=== PATIENT | female | born 1955 | race African-American/Black ===

== ENCOUNTER 2018-05-12 00:15 | Emergency (ER) | payer OTHER, MEDICAID ==
[~2018-05-12] VITALS: Ht 167.6 cm; Wt 103.0 kg
[~2018-05-12 00:15] MED LIST: NEURONTIN; NOR10T OR; RIZA10TA12 OR; ROBAXIN; TRAM-297 OR; VENL75CA3 OR
[2018-05-12 00:39] VITALS: BP 99/65
[2018-05-12 01:17] LABS: Anion Gap 7 (5-15); Blood Urea Nitrogen 16 mg/dL (7-18); Carbon Dioxide 22 mmol/L (21-32); Chloride 113 mmol/L (98-107); Glucose 82 mg/dL (74-106); Magnesium 2.4 mg/dL (1.6-2.6); Potassium 3.9 mmol/L (3.5-5.1); Sodium 142 mmol/L (136-145)
[2018-05-12 01:19] LABS: Alanine Aminotransferase 18 U/L (13-56); Aspartate Aminotransferase 12 U/L (15-37); BUN/Creatinine Ratio 18.6; GFR African American > 60 mL/min; GFR Non-African American > 60 mL/min
[2018-05-12 01:25] LABS: Alkaline Phosphatase 97 U/L (45-117); Bilirubin, Total 0.2 mg/dL (0.2-1.0); Total Protein 6.8 g/dL (6.4-8.2)
[2018-05-12 01:53] LABS: Basophils # (auto) 0.1 uL; Basophils % (auto) 2.8 % (0.0-2.0); Eosinophils # (auto) 0.5 uL; Eosinophils % (auto) 9.7 % (0.0-7.0); Hematocrit 30.1 % (36.0-46.0); Hemoglobin 9.7 g/dL (12.2-16.2); Lymphocytes # (auto) 0.8 uL; Mean Corpuscular Hemoglobin 25.6 pg (28.0-32.0); Mean Corpuscular Hgb Conc. 32.4 g/dL (32.0-36.0); Mean Corpuscular Volume 78.9 fL (80.0-100.0); Monocytes # (auto) 0.4 uL; Monocytes % (auto) 7.6 % (0.0-12.0); Neutrophils # (auto) 3.2 uL; Neutrophils % (auto) 63.9 % (37.0-80.0); Nucleated Red Blood Cells % 0.1 %; Platelet Count (auto) 324 10^3/uL (140-450); Red Blood Cells 3.81 10^6/uL (4.0-5.20); Red Cell Distribution Width 18.6 % (11.8-14.3)
[2018-05-12 01:56] LABS: INR 0.93 (0.9-1.15); Partial Thromboplastin Time 25.2 sec (23.78-33.04)
== END 2018-05-12 03:30 | disposition left against medical advice (07) ==
LOC: ER 00:19
DX: R50.9 Fever, unspecified (principal); R11.10 Vomiting, unspecified; Z53.21 Procedure and treatment not carried out due to patient leaving prior to being seen by health care provider
CPT/HCPCS: 36415; 71045; 74176; 80053; 83735; 83880; 84484; 85025; 85610; 85730; 93005

== ENCOUNTER 2025-03-01 17:42 | Inpatient (IN) | payer MEDICARE, MEDICAID ==
[~2025-03-01] VITALS: Ht 167.6 cm; Wt 105.9 kg
[2025-03-01 19:48] VITALS: PULSE 89; RESP 18; O2SAT 98
--- NOTE | 2025-03-01 20:02 | ED.PDOC ---
History of Present Illness HPI Comments 69-year-old female BIBA with the chief complaint of lower extremity swelling. Patient reports on having had lower extremity swelling associated with back pain for months. Patient saw her PCP last week and was prescribed Lasix for one week for which the patient finished her medications. Patient is currently living with her daughter and states that she was able to ambulate but currently he is unable to. Patient does have bilateral pitting edema to the lower extremities. Denies any other symptoms at this time. Denies chills, fever, N/V/D, SOB, CP. No other associated symptoms, modifiers, recent injuries or sick contacts present at this time. Chief Complaint: Lower Extremity Time Seen by MD: 19:30 Primary Care Provider: UNK Reviewed Notes: Nurses Notes, Medications, Allergies Allergies: Coded Allergies: NO KNOWN ALLERGIES (Unverified , 02/24/10) Home Meds Reported Medications Venlafaxine Hydrochloride (Effexor Xr) 75 Mg Cap, 75 MG OR TID 03/02/11 Rizatriptan Benzoate (Maxalt) 10 Mg Tab, 10 MG OR PRN 03/02/11 Tramadol Hcl (Ultram) 50 Mg Tab, 100 MG OR TID 03/02/11 Hydrocodone-Acetaminophen ([place] 10/325MG) 1 Tab Tb, 1 TAB OR TID 03/02/11 [Robaxin] No Conflict Check 02/24/10 [Neurontin] No Conflict Check 02/24/10 Information Source: Patient Mode of Arrival: EMS Severity: Moderate Timing: Came on: Gradually Duration: Since onset Prehospital treatment: None Past Medical History PAST MEDICAL HISTORY: Arthritis Surgical History: Denies all surgeries BUTT WELDER History: No Pertinent BUTT WELDER History Family History Family History: Reviewed,noncontributory to illness, Unknown Social History Smoker: Non-Smoker Alcohol: Denies ETOH Use Drugs: Denies Drug Use Lives In: Home Constitutional: denies: chills, diaphoresis, fatigue, fever, malaise, sweats, weakness, others EENTM: denies: blurred vision, double vision, ear bleeding, ear discharge, ear drainage, ear pain, ear ringing, eye pain, eye redness, hearing loss, mouth pain, mouth swelling, nasal discharge, nose bleeding, nose congestion, nose pain, photophobia, tearing, throat pain, throat swelling, voice changes, others Respiratory: denies: cough, hemoptysis, orthopnea, SOB at rest, shortness of breath, SOB with excertion, stridor, wheezing, others Cardiovascular: reports: edema (Bilateral pitting edema to the lower ext remities); denies: chest pain, dizzy spells, diaphoresis, Dyspnea on exertion, irregular heart beat, left arm pain, lightheadedness, palpitations, PND, syncope, others Gastrointestinal: denies: abdomen distended, abdominal pain, blood streaked bowels, constipated, diarrhea, dysphagia, difficulty swallowing, hematemesis, melena, nausea, poor appetite, poor fluid intake, rectal bleeding, rectal pain, vomiting, others Genitourinary: denies: abnormal vagina bleeding, burning, dyspareunia, dysuria, flank pain, frequency, hematuria, incontinence, pain, , vagina discharge, urgency, others Neurological: denies: dizziness, fainting, headache, left sided numbness, left sided weakness, numbness, paresthesia, pre-existing deficit, right sided numbness, right sided weakness, seizure, speech problems, tingling, tremors, weakness, others Musculoskeletal: denies: back pain, gout, joint pain, joint swelling, muscle pain, muscle stiffness, neck pain, others Integumetry: denies: bruises, change in color, change in hair/nails, dryness, laceration, lesions, lumps, rash, wounds, others Allergic/Immunocompromised: denies: Difficulty Healing, Frequent Infections, Hives, Itching, others Hematologic/Lymphatic: denies: anemia, blood clots, easy bleeding, easy bruising, swollen glands, others Endocrine: denies: excessive hunger, excessive sweating, excessive thirst, excessive urination, flushing, intolerance to cold, intolerance to heat, unexplained weight gain, unexplained weight loss, others Psychiatric: denies: anxiety, bipolar disorder, depression, hopeless, panic disorder, schizophrenia, sleepless, suicidal, others All Other Systems: Reviewed and Negative Physical Exam Exam Comments Bilateral pitting edema to the lower extremities General Appearance: No Apparent Distress, Normal HEENT: Normal ENT Inspection, Pharynx Normal, TMs Normal Neck: Full Range of Motion, Non-Tender, Normal, Normal Inspection Respiratory: Chest Non-Tender, Lungs Clear, No Accessory Muscle Use, No Respiratory Distress, Normal Breath Sounds Cardiovascular: No Edema, No JVD, No Murmur, No Gallop, Normal Peripheral Pulses, Regular Rate/Rhythm Breast Exam: Deferred Gastrointestinal: No Organomegaly, Non Tender, No Pulsatile Mass, Normal Bowel Sounds, Soft Genitalia: Deferred Pelvic: Deferred Rectal: Deferred Extremities: No calf tenderness, Normal capillary refill, Normal inspection, Normal range of motion, Non-tender, No pedal edema Musculoskeletal : Apperance: Normal Neurologic: Alert, engineering administrator II-XII nml as Tested, No Motor Deficits, Normal Affect, Normal Mood, No Sensory Deficits Cerebellar Function: Normal Reflexes: Normal Skin: Dry, Normal Color, Warm Lymphatic: No Adenopathy Was a procedure done? Was a procedure done?: No Differential Dx Considerations may include: CHF exacerbation, COPD, pneumonia, DVT, peripheral edema, cellulitis X-Ray, Labs, Meds, VS Vital Signs Date Time Temp Pulse Resp B/P (MAP) Pulse Ox O2 Delivery O2 Flow Rate FiO2 03/01/25 19:48 89 18 98 Room Air* 0 21 03/01/25 19:30 97.7 89 18 151/ 98 97.7 03/01/25 18:14 98.3 90 18 133/69 98 98.3 Lab Test 03/01/25 19:41 Range/Units White Blood Count 3.8 L 4.4-10.8 10^3/uL Red Blood Count 3.17 L 4.0-5.20 10^6/uL Hemoglobin 8.9 L 12.2-16.2 g/dL Hematocrit 26.7 L 36.0-46.0 % Mean Corpuscular Volume 84.2 80.0-100.0 fL Mean Corpuscular Hemoglobin 28.0 28.0-32.0 pg Mean Corpuscular Hemoglobin Concent 33.2 32.0-36.0 g/dL Red Cell Distribution Width 15.5 H 11.8-14.3 % Platelet Count 279 140-450 10^3/uL Mean Platelet Volume 7.6 6.9-10.8 fL Neutrophils (%) (Auto) 69.3 37.0-80.0 % Lymphocytes (%) (Auto) 20.3 10.0-50.0 % Monocytes (%) (Auto) 9.9 0.0-12.0 % Eosinophils (%) (Auto) 0.4 0.0-7.0 % Basophils (%) (Auto) 0.1 0.0-2.0 % Neutrophils # (Auto) 2.6 1.6-8.6 10 ^3/uL Lymphocytes # (Auto) 0.8 0.4-5.4 10 ^3/uL Monocytes # (Auto) 0.4 0-1.3 10 ^3/uL Eosinophils # (Auto) 0 0-0.8 10 ^3/uL Basophils # (Auto) 0 0-0.2 10 ^3/uL Nucleated Red Blood Cells 0.0 % Sodium Level 142 136-145 mmol/L Potassium Level 3.2 L 3.5-5.1 mmol/L Chloride Level 106 98-107 mmol/L Carbon Dioxide Level 28 20-31 mmol/L Anion Gap 8 5-15 Blood Urea Nitrogen 15 9-23 mg/dL Creatinine 1.06 H 0.550-1.02 mg/dL Glomerular Filtration Rate Calc 57 >90 mL/min BUN/Creatinine Ratio 14.2 10.0-20.0 Serum Glucose 100 74-106 mg/dL Calcium Level 8.3 L 8.7-10.4 mg/dL Total Bilirubin 0.7 0.2-1.0 mg/dL Aspartate Amino Transferase (AST) 82 H 13-40 U/L Alanine Aminotransferase (ALT) 104 H 7-40 U/L Alkaline Phosphatase 144 H 46-116 U/L B-Type Natriuretic Peptide 305.69 0-100 pg/mL Total Protein 5.7 5.7-8.2 g/dL Albumin 2.8 L 3.2-4.8 g/dL X-Ray, Labs, Meds, VS Comment Patient will be admitted for peripheral edema leading to her being gravely disabled. Unable to care for herself. Patient unwilling to help herself to use the commode or bathroom in the emergency department, Shah catheter has been placed Recommend Cardiology consult in morning Patient hemodynamically stable Time of 1ST Reevaluation: 20:00 Reevaluation 1ST: Unchanged Patient Education/Counseling: Diagnosis, Treatment, Prognosis Family Education/Counseling: No Family Present SEPSIS Sepsis Screen Date sepsis recognized/suspect: Mar 01, 2025 Time Sepsis recognized/suspect: 1944 Recent Procedure: No On Antibiotic Therapy: No Respiratory Rate >20: No Heart Rate >90: No Temp<36 C (96.8 F) or >38.3 C: No SBP <90 or MAP <65 mmHG: No New Acute Mental Status Change: No Is the patient on CPAP, BIPAP,: No Physician Orders Urinalysis (03/01/25 19:21) Chest Xray 1 View (03/01/25 19:21) Vital Signs Date Time Temp Pulse Resp B/P (MAP) Pulse Ox O2 Delivery O2 Flow Rate FiO2 03/01/25 19:48 89 18 98 Room Air* 0 21 03/01/25 19:30 97.7 89 18 151/ 98 97.7 03/01/25 18:14 98.3 90 18 133/69 98 98.3 Laboratory Tests Test 03/01/25 19:41 White Blood Count 3.8 10^3/uL (4.4-10.8) L Departure 1 Departure Time of Disposition: 21:05 Impression: Primary Impression: CHF (congestive heart failure) Qualified Codes: I50.22 - Chronic systolic (congestive) heart failure Additional Impressions: Gravely disabled Peripheral edema Disposition: ADMITTED INPATIENT Condition: Stable Critical Care Note Critical Care Time?: No Stability Stability form required: No I personally scribed for TEO SALTER ([email or web address]) on 03/01/25 at 20:02. Electronically submitted by Mil Mckoy ([email or web address]). TEO SALTER Mar 01, 2025 20:02
[2025-03-01 20:25] LABS: Hematocrit 26.7 % (36.0-46.0); Hemoglobin 8.9 g/dL (12.2-16.2); Mean Corpuscular Hemoglobin 28.0 pg (28.0-32.0); Mean Corpuscular Volume 84.2 fL (80.0-100.0); Nucleated Red Blood Cells % 0.0 %
[2025-03-01 20:28] LABS: Anion Gap 8 (5-15); BUN/Creatinine Ratio 14.2 (10.0-20.0); Blood Urea Nitrogen 15 mg/dL (9-23); Carbon Dioxide 28 mmol/L (20-31); Chloride 106 mmol/L (98-107); Glucose 100 mg/dL (74-106); Sodium 142 mmol/L (136-145); Total Protein 5.7 g/dL (5.7-8.2)
[2025-03-01 20:29] LABS: Bilirubin, Total 0.7 mg/dL (0.2-1.0)
[2025-03-01 20:50] LABS: Alanine Aminotransferase 104 U/L (7-40); Albumin 2.8 g/dL (3.2-4.8); Alkaline Phosphatase 144 U/L (46-116); Calcium 8.3 mg/dL (8.7-10.4); Potassium 3.2 mmol/L (3.5-5.1)
--- NOTE | 2025-03-01 21:07 | DVH ---
CHEST RADIOGRAPH Indication: sob Technique: Single frontal view of the chest was obtained Comparison: None FINDINGS: Lines and Tubes: None Lungs: No focal consolidation. Pleura: No effusion. No pneumothorax. Cardiomediastinal contours: Unremarkable Bones: No acute osseous abnormality. IMPRESSION: 1. No acute cardiopulmonary disease.
[2025-03-01] MEDS: FUROSEMIDE 40 MG/4 ML VIAL IV ONE (21:09)
[2025-03-01 21:41] LABS: Urine Protein, UAD Negative (Negative)
[2025-03-01] MEDS: POTASSIUM EFFERVESENT TAB 25 MEQ PO ONE (22:01)
[2025-03-01] MEDS ORDERED: ACETAMINOPHEN 325 MG TAB PO PRN (22:30)
[2025-03-01] MEDS ORDERED: ONDANSETRON HCL 4 MG/2 ML VIAL IV PRN (22:30)
[2025-03-01 23:12] LABS: Amphetamine Screen, Urine Neg (NEGATIVE); Barbiturate Scree,Urine Neg (NEGATIVE); Benzodiazephine Screen, Urine Neg (NEGATIVE); Cannabinoid Screen, Urine Neg (NEGATIVE); Cocaine Screen, Urine Neg (NEGATIVE); Opiate Scree,Urine Pos (NEGATIVE); Phencyclidine Screen, Urine Neg (NEGATIVE)
[2025-03-01] MEDS: ENOXAPARIN SOD 40 MG/0.4 ML SYRINGE SC SCH (23:30)
[2025-03-01] MEDS: HYDROmorphone HCL 2 MG/ML VL/or syr IV ONE (23:31)
--- NOTE | 2025-03-01 23:47 | DVH ---
ULTRASOUND DOPPLER CLINICAL HISTORY: transaminitis TECHNIQUE: Doppler examination of the abdomen was performed. COMPARISON: None FINDINGS: The liver measures 19.0 cm. There is increased hepatic echogenicity. There is hepatopetal flow. There is no biliary ductal dilatation. Prior cholecystectomy. The common bile duct measures 7 mm. The pancreas is obscured due to overlying bowel gas. The right kidney measures 11.7 cm. There is no evidence of renal calculus, mass, or hydronephrosis. IMPRESSION: 1. Hepatomegaly with increased hepatic echogenicity which may reflect hepatic steatosis or intrinsic hepatocellular disease.
--- NOTE | 2025-03-01 23:54 | DVHHPRES ---
History of Present Illness Resident Creating Document: DENIS ZAMORA RESIDENT History of Present Illness 69-year-old female with a past medical history of arthritis, anemia, chronic back pain, morbid obesity and surgical history of bilateral knee replacement has come to the ER with chief complaints of bilateral lower limb edema for the past 8 days, rendering her unable to get out of bed and ambulate. Patient reports that she has been mostly bedridden for over 9 months due to chronic back pain, but uses a walker to ambulate, however, in the past 8 days has not been able to do so prompting her to visit the ER. She states that her neurologist has given her a stimulator device ( which is attached to her back and abdomen) for her back pain 9 days ago, which has helped with the pain and her PCP also prescribed her Lasix for 1 week which has run out. she denies any chills, fever, nausea, vomiting, diarrhea, shortness of breath, palpitations, sick contacts, cough, b sienna pain. On admission her vitals are stable, potassium is low at 3.2, hemoglobin at 8.9, ALT 104, AST 82, ALT 144, BNP 305.69. Chest x-ray is normal. We are admitting the patient for further workup and management PMH: As stated above PSH: As stated above Family history: Reviewed, noncontributory to the management of this case Social history: Patient denies ever smoking, drinking alcohol or abusing illicit drugs Allergies: None Code status: Full code Review of Systems Constitutional: No: Fever, Chills, Sweats, Weakness, Malaise, Other Eyes: No: Pain, Vision change, Conjunctivae inflammation, Eyelid inflammation, Other, Redness ENT: No: Ear pain, Ear discharge, Nose pain, Nose discharge, Nose congestion, Mouth pain, Mouth swelling, Throat pain, Throat swelling, Other Respiratory: No: Cough, Dry, Shortness of breath, SOB with excertion, Wheezing, Hemoptysis, Pleuritic Pain, Sputum, Wheezing, Other Cardiovascular: Other (Bilateral leg edema); No: Chest Pain, Palpitations, Orthopnea, Paroxysmal Noc. Dyspnea, Edema, Lt Headedness Gastrointestinal: No: Nausea, Vomiting, Abdominal Pain, Diarrhea, Constipation, Melena, Hematochezia, Other Genitourinary: No Dysuria, No Frequency, No Incontinence, No Hematuria, No Retention, No Other Musculoskeletal: back pain; No: other, neck pain, shoulder pain, arm pain, hand pain, leg pain, foot pain Skin: No: Rash, Lesions, Jaundice, Bruising, Other Neurological: No: Weakness, Numbness, Incoordination, Change in speech, Confusion, Seizures, Other Allergies: Coded Allergies: NO KNOWN ALLERGIES (Unverified , 02/24/10) Medications Current Medications Medications Dose Ordered Sig/Jason Route Start Time Stop Time Status Last Admin Dose Admin Acetaminophen/ Hydrocodone Bitart 1 tab Q4HP PRN PO 03/01/25 22:30 Ondansetron HCl 4 mg Q4HP PRN IV 03/01/25 22:30 Acetaminophen 650 mg Q6HP PRN PO 03/01/25 22:30 Enoxaparin Sodium 40 mg DAILY SC 03/01/25 22:30 03/01/25 23:30 40 MG Furosemide 40 mg DAILY IV 03/02/25 10:00 Hydromorphone HCl 0.25 mg Q4HPRN PRN IV 03/01/25 22:30 Exam Vital Signs Vital Signs Date Time Temp Pulse Resp B/P (MAP) Pulse Ox O2 Delivery O2 Flow Rate FiO2 03/01/25 23:31 91 18 126/67 03/01/25 21:30 98 03/01/25 19:48 Room Air* 0 21 03/01/25 19:30 97.7 97.7 Exam Pt is lying on bed General Appearance: Alert, Oriented X3, Cooperative, Not in acute distress, obese HEENT: Atraumatic, Mucous membranes moist/pink Respiratory: Clear to auscultation, Normal air movement, No added sounds Cardiovascular: Regular rate, Normal S1, Normal S2, No murmurs Abdominal: Active bowel sounds, Soft, no distention, no tenderness Extremities: No edema, Normal pulses, +2 pitting edema up to the knee, tender on palpation of bilateral legs Skin: No Significant rash, except past surgical scars, presence of neurostimulator device in the abdomen and mid back Neuro: Normal speech, sensorimotor deficits none Psych/Mental Status: Mental status NL, Mood NL Rectal examination: Done in the presence of a ophthalmology surgical technician (Nurse). Anal sphincter tone was normal, rectal vault was empty, no external hemorrhoids or masses felt, no bleeding present Labs/Xrays Labs Test 03/01/25 21:25 03/01/25 19:41 Range/Units Urine Color Light-yellow Yellow Urine Clarity Clear Clear Urine pH 6.0 5.0-9.0 Urine Specific [place] 1.011 1.001-1.035 Urine Protein Negative Negative Urine Ketones Negative Negative Urine Blood Negative Negative /uL Urine Nitrite Negative Negative Urine Bilirubin Negative Negative Urine Urobilinogen Normal Negative mg/dL Urine Leukocyte Esterase Negative Negative /uL Urine RBC 1 0 - 4 /hpf Urine Microscopic WBC 1 0-5 /HPF Urine Squamous Epithelial Cells Few <5 /hpf Urine Bacteria None seen None Seen /hpf Urine Mucus Few None Seen Urine Glucose Normal Normal mg/dL Urine Opiates Screen Pos NEGATIVE Urine Fentanyl Screen Neg NEGATIVE Urine Barbiturates Screen Neg NEGATIVE Urine Phencyclidine Screen Neg NEGATIVE Urine Amphetamines Screen Neg NEGATIVE Urine Benzodiazepines Screen Neg NEGATIVE Urine Cocaine Screen Neg NEGATIVE Urine Cannabinoids Screen Neg NEGATIVE White Blood Count 3.8 L 4.4-10.8 10^3/uL Red Blood Count 3.17 L 4.0-5.20 10^6/uL Hemoglobin 8.9 L 12.2-16.2 g/dL Hematocrit 26.7 L 36.0-46.0 % Mean Corpuscular Volume 84.2 80.0-100.0 fL Mean Corpuscular Hemoglobin 28.0 28.0-32.0 pg Mean Corpuscular Hemoglobin Concent 33.2 32.0-36.0 g/dL Red Cell Distribution Width 15.5 H 11.8-14.3 % Platelet Count 279 140-450 10^3/uL Mean Platelet Volume 7.6 6.9-10.8 fL Neutrophils (%) (Auto) 69.3 37.0-80.0 % Lymphocytes (%) (Auto) 20.3 10.0-50.0 % Monocytes (%) (Auto) 9.9 0.0-12.0 % Eosinophils (%) (Auto) 0.4 0.0-7.0 % Basophils (%) (Auto) 0.1 0.0-2.0 % Neutrophils # (Auto) 2.6 1.6-8.6 10 ^3/uL Lymphocytes # (Auto) 0.8 0.4-5.4 10 ^3/uL Monocytes # (Auto) 0.4 0-1.3 10 ^3/uL Eosinophils # (Auto) 0 0-0.8 10 ^3/uL Basophils # (Auto) 0 0-0.2 10 ^3/uL Nucleated Red Blood Cells 0.0 % Sodium Level 142 136-145 mmol/L Potassium Level 3.2 L 3.5-5.1 mmol/L Chloride Level 106 98-107 mmol/L Carbon Dioxide Level 28 20-31 mmol/L Anion Gap 8 5-15 Blood Urea Nitrogen 15 9-23 mg/dL Creatinine 1.06 H 0.550-1.02 mg/dL Glomerular Filtration Rate Calc 57 >90 mL/min BUN/Creatinine Ratio 14.2 10.0-20.0 Serum Glucose 100 74-106 mg/dL Calcium Level 8.3 L 8.7-10.4 mg/dL Magnesium Level 1.9 1.6-2.6 mg/dL Total Bilirubin 0.7 0.2-1.0 mg/dL Aspartate Amino Transferase (AST) 82 H 13-40 U/L Alanine Aminotransferase (ALT) 104 H 7-40 U/L Alkaline Phosphatase 144 H 46-116 U/L B-Type Natriuretic Peptide 305.69 0-100 pg/mL Total Protein 5.7 5.7-8.2 g/dL Albumin 2.8 L 3.2-4.8 g/dL SEPSIS Sepsis Screen Date sepsis recognized/suspect: Mar 01, 2025 Time Sepsis recognized/suspect: 1944 Recent Procedure: No On Antibiotic Therapy: No Respiratory Rate >20: No Heart Rate >90: No Temp<36 C (96.8 F) or >38.3 C: No SBP <90 or MAP <65 mmHG: No New Acute Mental Status Change: No Is the patient on CPAP, BIPAP,: No Physician Orders Chest Xray 1 View (03/01/25 19:21) Admit (03/01/25 22:16) Code Status (03/01/25 22:16) Hydrocodone-Acet 5/325mg Tab ([place] 5/32 (03/01/25 22:30) Ondansetron Hcl (Zofran) (03/01/25 22:30) Complete Blood Count (03/02/25 04:00) Comprehensive Metabolic Panel (03/02/25 04:00) Cardiac Diet-2gna,Lofat,Lochol (03/02/25 Breakfast) Condition: Unstable (03/01/25 22:16) Acetaminophen Tablet (Tylenol Tablet) (03/01/25 22:30) Enoxaparin Sodium (Lovenox) (03/01/25 22:30) Electrocardigram (03/01/25 22:16) LIVER (03/01/25 22:16) Furosemide Injection (Lasix Injection) (03/02/25 10:00) Echo 2d Mode Cardiac Dop (03/01/25 22:16) Maintain Fluid Restrictions QSHIFT (03/01/25 22:16) Strict I & O QSHIFT (03/01/25 22:16) Hydromorphone Injection (Dilaudid Inject (03/01/25 22:30) Iron Panel (03/01/25 23:45) Ferritin (03/01/25 23:45) Vitamin B12 (03/01/25 23:45) Folate (Folic Acid) (03/01/25 23:45) Stool Occult Blood (03/01/25 23:45) Vital Signs Date Time Temp Pulse Resp B/P (MAP) Pulse Ox O2 Delivery O2 Flow Rate FiO2 03/01/25 23:31 91 18 126/67 03/01/25 21:30 89 18 134/71 (92) 98 03/01/25 21:09 134/71 03/01/25 19:48 89 18 98 Room Air* 0 21 03/01/25 19:30 97.7 89 18 151/70 (97) 98 97.7 03/01/25 18:14 98.3 90 18 133/69 98 98.3 Laboratory Tests Test 03/01/25 19:41 White Blood Count 3.8 10^3/uL (4.4-10.8) L Medications Medications Dose Ordered Sig/Jason Route Start Time Stop Time Status Last Admin Dose Admin Enoxaparin Sodium 40 mg DAILY SC 03/01/25 22:30 03/01/25 23:30 40 MG Furosemide 40 mg ONCE ONCE IV 03/01/25 19:30 03/01/25 19:31 DC 03/01/25 21:09 40 MG Hydromorphone HCl 0.25 mg ONCE ONCE IV 03/01/25 22:30 03/01/25 22:48 DC 03/01/25 23:31 0.25 MG Potassium Bicarbonate 50 meq ONCE ONCE PO 03/01/25 21:30 03/01/25 21:31 DC 03/01/25 22:01 50 MEQ Assessment/Plan Assessment/Plan #Possible acute exacerbation of CHF -BNP 305.69 -EKG -Echo -Tele monitor -Strict input and output monitoring -Maintain fluid restriction -UDS negative -furosemide 40 mg IV once and daily OD #Hypokalemia -Repleted -Magnesium 1.9 #Hypochromic, normocytic anemia #Iron deficiency -Iron panel: iron 35, tibc 142, ferritin 124.5 -Stool occult blood -ferrous sulphate 325mg po daily #Transaminitis #Hepatic steatosis and intrinsic hepatocellular disease -ALT 104, AST 82, ALP 144 -Ultrasound of the liver: Hepatomegaly with increased hepatic echogenicity which may reflect hepatic steatosis or intrinsic hepatocellular disease -outpt followup #Chronic back pain -Pain management with: -acetaminophen 650 mg p.o. q.6 PRN for mild pain -[place] 5/325 mg q.4 PRN for moderate pain and -Dilaudid 0.25 mg IV once and 0.25 mg q.4 PRN for severe pain #Morbid obesity, BMI 37.2 kg/m2 - patient was counseled regarding need of exercise, weight loss, dietary modification and healthy lifestyle for the 8 minutes DVT prophylaxis: Lovenox 40 mg SC daily Diet: cardiac Goals of care discussed with the patient for more than 27 minutes: Full code status Case discussed with , patient Plan discussed with: Patient My Orders Orders - DENIS ZAMORA RESIDENT Procedure Category Date Status Time Admit ADMIT 03/01/25 Transmitted 22:16 Code Status CODE 03/01/25 Transmitted 22:16 Hydrocodone-Acet PHA 03/01/25 In Process 5/325mg Tab ([place] 22:30 Ondansetron Hcl PHA 03/01/25 In Process (Zofran) 22:30 Complete Blood Count LAB 03/02/25 Verified 04:00 Comprehensive LAB 03/02/25 Verified Metabolic Panel 04:00 Cardiac DIET 03/02/25 Transmitted Diet-2gna,Lofat,Lochol Breakfast Condition: Unstable MARYLOU 03/01/25 In Process 22:16 Acetaminophen Tablet PHA 03/01/25 In Process (Tylenol Tablet) 22:30 Enoxaparin Sodium PHA 03/01/25 In Process (Lovenox) 22:30 Electrocardigram EKG 03/01/25 Logged 22:16 LIVER US 03/01/25 Resulted 22:16 Furosemide Injection PHA 03/02/25 In Process (Lasix Injection) 10:00 Echo 2d Mode Cardiac US 03/01/25 Logged DOP 22:16 Maintain Fluid MARYLOU 03/01/25 In Process Restrictions 22:16 Strict I & O MARYLOU 03/01/25 In Process 22:16 Hydromorphone PHA 03/01/25 In Process Injection (Dilaudid 22:30 Iron Panel LAB 03/01/25 Verified 23:45 Ferritin LAB 03/01/25 Verified 23:45 Vitamin B12 LAB 03/01/25 Verified 23:45 Folate (Folic Acid) LAB 03/01/25 Verified 23:45 Stool Occult Blood LAB 03/01/25 Verified 23:45 Date of Service: Mar 01, 2025 Billing Provider: JONATAN MAHARAJ MD Common Visit Codes: 93593-[id number] INP/OBS CARE (HIGH) Secondary Visit Codes: [id number] CARE PLAN 30 MINUTES DENIS ZAMORA RESIDENT Mar 01, 2025 23:53
[2025-03-02] VITALS (7 sets, daily range): BP systolic 104–137; BP diastolic 57–71; PULSE 78–111; RESP 16–18; TEMP 97.8–98.4; O2SAT 97–99
[2025-03-02 00:52] LABS: Iron 35.0 ug/dL (50-170); Total Iron Binding Capacity 152.0 ug/dL (250-425)
[2025-03-02 00:54] LABS: Ferritin 124.5 ng/mL (10-291)
[2025-03-02 05:48] LABS: Hematocrit 25.4 % (36.0-46.0); Hemoglobin 8.5 g/dL (12.2-16.2); Mean Corpuscular Hemoglobin 28.4 pg (28.0-32.0); Mean Corpuscular Volume 84.9 fL (80.0-100.0); Nucleated Red Blood Cells % 0.2 %
[2025-03-02 06:09] LABS: Anion Gap 12 (5-15); BUN/Creatinine Ratio 11.4 (10.0-20.0); Bilirubin, Total 0.8 mg/dL (0.2-1.0); Blood Urea Nitrogen 10 mg/dL (9-23); Carbon Dioxide 27 mmol/L (20-31); Chloride 104 mmol/L (98-107); Glucose 91 mg/dL (74-106); Potassium 3.7 mmol/L (3.5-5.1); Sodium 143 mmol/L (136-145)
[2025-03-02 06:13] LABS: Alanine Aminotransferase 87 U/L (7-40); Albumin 2.6 g/dL (3.2-4.8); Alkaline Phosphatase 126 U/L (46-116); Calcium 8.2 mg/dL (8.7-10.4); Total Protein 5.2 g/dL (5.7-8.2)
[2025-03-02] MEDS ORDERED: MORP15TA PO (06:37)
[2025-03-02] MEDS: FUROSEMIDE 40 MG/4 ML VIAL IV SCH (09:49)
[2025-03-02] MEDS: FERROUS SULFATE 325mg EC TAB PO SCH (09:49)
--- NOTE | 2025-03-02 10:44 | DVHPN2 ---
Reviewed: H&P Changes from previous H/P or p: No Changes General: Per HPI Eyes: No Pain, No Vision change, No Conjunctivae inflammation, No Eyelid inflammation, No Other, No Redness ENT: No Ear pain, No Ear discharge, No Nose pain, No Nose discharge, No Nose congestion, No Mouth pain, No Mouth swelling, No Throat pain, No Throat swelling, No Other Cardiovascular: No Chest Pain, No Palpitations, No Orthopnea, No Paroxysmal Noc. Dyspnea, No Edema, No Lt Headedness; Other (Bilateral leg edema) Respiratory: No Cough, No Dry, No Shortness of breath, No SOB with excertion, No Wheezing, No Hemoptysis, No Pleuritic Pain, No Sputum, No Other Gastrointestinal: No Nausea, No Vomiting, No Abdominal Pain, No Diarrhea, No Constipation, No Melena, No Hematochezia, No Other Genitourinary: No Dysuria, No Frequency, No Incontinence, No Hematuria, No Retention, No Other Musculoskeletal: No other, No neck pain, No shoulder pain, No arm pain; back pain; No hand pain, No leg pain, No foot pain Skin: No Rash, No Lesions, No Jaundice, No Bruising, No Other Objective Vitals Vital Signs Date Time Temp Pulse Resp B/P (MAP) Pulse Ox O2 Delivery O2 Flow Rate FiO2 03/02/25 09:49 137/71 03/02/25 08:44 97.9 84 16 99 97.9 03/02/25 08:00 Room Air* 0 21 Intake/Output Intake and Output 03/02/25 07:00 Output Total 3600 ml Balance -3600 ml Output Urine Total 3600 ml Exam GEN: Healthy appearing, well-developed, NAD. HEENT: NC/AT; MMM. CV: RRR, no m/r/g. LUNGS: CTAB, no w/r/c. ABD: Soft, NT/ND, NBS, no masses or organomegaly. EXT: skin Warm, well perfused. no rashes. Pitting edema bilaterally 2+ secretions, left lower extremity more tender NEURO: Ambulating with no limitations. No focal deficits. Medications Current Medications Medications Dose Ordered Sig/Jason Route Start Time Stop Time Status Last Admin Dose Admin Acetaminophen/ Hydrocodone Bitart 1 tab Q4HP PRN PO 03/01/25 22:30 Ondansetron HCl 4 mg Q4HP PRN IV 03/01/25 22:30 Acetaminophen 650 mg Q6HP PRN PO 03/01/25 22:30 Enoxaparin Sodium 40 mg DAILY SC 03/01/25 22:30 03/02/25 09:50 40 MG Furosemide 40 mg DAILY IV 03/02/25 10:00 03/02/25 09:49 40 MG Hydromorphone HCl 0.25 mg Q4HPRN PRN IV 03/01/25 22:30 Ferrous Sulfate 325 mg DAILY PO 03/02/25 10:00 03/02/25 09:49 325 MG Laboratory Results Laboratory Tests 03/02/25 04:36 Chemistry Test 03/01/25 19:41 03/02/25 04:36 Albumin 2.8 g/dL (3.2-4.8) L 2.6 g/dL (3.2-4.8) L Calcium Level 8.3 mg/dL (8.7-10.4) L 8.2 mg/dL (8.7-10.4) L Magnesium Level 1.9 mg/dL (1.6-2.6) Total Protein 5.7 g/dL (5.7-8.2) 5.2 g/dL (5.7-8.2) L Cardiac Markers Test 03/01/25 19:41 B-Type Natriuretic Peptide 305.69 pg/mL (0-100) LFT Test 03/01/25 19:41 03/02/25 04:36 Alanine Aminotransferase (ALT) 104 U/L (7-40) H 87 U/L (7-40) H Alkaline Phosphatase 144 U/L (46-116) H 126 U/L (46-116) H Aspartate Amino Transferase (AST) 82 U/L (13-40) H 70 U/L (13-40) H Total Bilirubin 0.7 mg/dL (0.2-1.0) 0.8 mg/dL (0.2-1.0) Urinalysis Test 03/01/25 21:25 Urine Color Light-yellow (Yellow) Urine Clarity Clear (Clear) Urine pH 6.0 (5.0-9.0) Urine Specific [place] 1.011 (1.001-1.035) Urine Protein Negative (Negative) Urine Ketones Negative (Negative) Urine Blood Negative /uL (Negative) Urine Nitrite Negative (Negative) Urine Bilirubin Negative (Negative) Urine Urobilinogen Normal mg/dL (Negative) Urine Leukocyte Esterase Negative /uL (Negative) Urine RBC 1 /hpf (0 - 4) Urine Microscopic WBC 1 /HPF (0-5) Urine Squamous Epithelial Cells Few /hpf (<5) Urine Bacteria None seen /hpf (None Seen) Urine Mucus Few (None Seen) Urine Glucose Normal mg/dL (Normal) Labs and/or images reviewed: Labs reviewed by me, Image(s) reviewed by me Assessment/Plan Assessment/Plan 69-year-old female with a past medical history of arthritis, anemia, chronic back pain, morbid obesity and surgical history of bilateral knee replacement has come to the ER with chief complaints of bilateral lower limb edema for the past 8 days, rendering her unable to get out of bed and ambulate. Patient reports that she has been mostly bedridden for over 9 months due to chronic back pain, but uses a walker to ambulate, however, in the past 8 days has not been able to do so prompting her to visit the ER. She states that her neurologist has given her a stimulator device ( which is attached to her back and abdomen) for her back pain 9 days ago, which has helped with the pain and her PCP also prescribed her Lasix for 1 week which has run out. she denies any chills, fever, nausea, vomiting, diarrhea, shortness of breath, palpitations, sick contacts, cough, body pain. On admission her vitals are stable, potassium is low at 3.2, hemoglobin at 8.9, ALT 104, AST 82, ALT 144, BNP 305.69. Chest x-ray is normal. We are admitting the patient for further workup and management 03/02: Patient presenting with lower extremity swelling. Pending echocardiogram. BNP mildly elevated at 300. Started on furosemide 40 IV daily. Patient also has elevated liver enzymes on liver ultrasound showing hepatic steatosis. We will do ultrasound lower extremities for DVT ruled out. Possible cirrhosis versus CHF pending echo. Continue IV Lasix. getting inr and hepatitis panel. no proteinuria. #acute CHF exacerbation, diastolic dysfunction likely -BNP 305.69 -EKG -Echo -Tele monitor -Strict input and output monitoring -Maintain fluid restriction -UDS negative -furosemide 40 mg IV once and daily OD #Hypokalemia -Repleted -Magnesium 1.9 #Hypochromic, normocytic anemia #Iron deficiency -Iron panel: iron 35, tibc 142, ferritin 124.5 -Stool occult blood -ferrous sulphate 325mg po daily #Transaminitis #Hepatic steatosis and intrinsic hepatocellular disease -ALT 104, AST 82, ALP 144 -Ultrasound of the liver: Hepatomegaly with increased hepatic echogenicity which may reflect hepatic steatosis or intrinsic hepatocellular disease -outpt followup #Chronic back pain -Pain management with: -acetaminophen 650 mg p.o. q.6 PRN for mild pain -[place] 5/325 mg q.4 PRN for moderate pain and -Dilaudid 0.25 mg IV once and 0.25 mg q.4 PRN for severe pain #Morbid obesity, BMI 37.2 kg/m2 - patient was counseled regarding need of exercise, weight loss, dietary modification and healthy lifestyle for the 8 minutes Tele Full code Plan discussed with: Patient Date of Service: Mar 02, 2025 Billing Provider: GWEN GONZALEZ MD Common Visit Codes: [id number] INP/OBS CARE(HIGH) GWEN GONZALEZ MD Mar 02, 2025 10:44
[2025-03-02 12:37] LABS: INR 1.14 (0.9-1.15); Prothrombin Time 11.9 sec (9.3-11.8)
[2025-03-02] MEDS: HYDROcodone-ACET 5/325MG TAB PO PRN (14:55)
--- NOTE | 2025-03-02 15:02 | DVH ---
Bilateral lower extremity venous duplex Clinical History: lower extrem swelling. r/o DVT Comparison: None Technique: Duplex Doppler evaluation of the deep venous systems of both lower extremities from the common femoral veins to the popliteal veins including color Doppler and spectral/pulsed waveform analysis was performed. Findings: RIGHT SIDE: The common femoral vein demonstrates appropriate compressibility and waveform variability. There is compressibility/patency of the great saphenous vein at the proximal thigh. The femoral vein demonstrates appropriate compressibility and waveform variability. The deep femoral vein demonstrates appropriate compressibility and waveform variability. The popliteal vein demonstrates partially occlusive thrombus with partial compressibility . There is normal compressibility at the tibioperoneal trunk. LEFT SIDE: The common femoral vein demonstrates appropriate compressibility and waveform variability. There is compressibility/patency of the great saphenous vein at the proximal thigh. The femoral vein demonstrates appropriate compressibility and waveform variability. The deep femoral vein demonstrates appropriate compressibility and waveform variability. The popliteal vein demonstrates appropriate compressibility and waveform variability. There is normal compressibility at the tibioperoneal trunk. Impression: Partially occlusive DVT in the right popliteal vein. No evidence of DVT in the left lower extremity
[2025-03-03] VITALS (7 sets, daily range): BP systolic 84–114; BP diastolic 51–80; PULSE 85–99; RESP 16–18; TEMP 97.5–98.7; O2SAT 95–99
[2025-03-03 07:35] LABS: Hemoglobin 8.1 g/dL (12.2-16.2)
[2025-03-03 07:38] LABS: Hematocrit 24.0 % (36.0-46.0); Mean Corpuscular Hemoglobin 28.5 pg (28.0-32.0); Mean Corpuscular Volume 84.8 fL (80.0-100.0); Nucleated Red Blood Cells % 0.1 %
[2025-03-03 07:55] LABS: Alkaline Phosphatase 110 U/L (46-116); Anion Gap 9 (5-15); BUN/Creatinine Ratio 13.1 (10.0-20.0); Blood Urea Nitrogen 11 mg/dL (9-23); Carbon Dioxide 31 mmol/L (20-31); Chloride 103 mmol/L (98-107); Glucose 90 mg/dL (74-106); Sodium 143 mmol/L (136-145)
[2025-03-03 07:56] LABS: Bilirubin, Total 0.6 mg/dL (0.2-1.0)
[2025-03-03 07:59] LABS: Alanine Aminotransferase 67 U/L (7-40); Albumin 2.4 g/dL (3.2-4.8); Calcium 7.7 mg/dL (8.7-10.4); Potassium 3.4 mmol/L (3.5-5.1); Total Protein 4.6 g/dL (5.7-8.2)
--- NOTE | 2025-03-03 10:30 | DVHPN2 ---
Reviewed: H&P Changes from previous H/P or p: No Changes General: Per HPI Eyes: No Pain, No Vision change, No Conjunctivae inflammation, No Eyelid inflammation, No Other, No Redness ENT: No Ear pain, No Ear discharge, No Nose pain, No Nose discharge, No Nose congestion, No Mouth pain, No Mouth swelling, No Throat pain, No Throat swelling, No Other Cardiovascular: No Chest Pain, No Palpitations, No Orthopnea, No Paroxysmal Noc. Dyspnea, No Edema, No Lt Headedness; Other (Bilateral leg edema) Respiratory: No Cough, No Dry, No Shortness of breath, No SOB with excertion, No Wheezing, No Hemoptysis, No Pleuritic Pain, No Sputum, No Other Gastrointestinal: No Nausea, No Vomiting, No Abdominal Pain, No Diarrhea, No Constipation, No Melena, No Hematochezia, No Other Genitourinary: No Dysuria, No Frequency, No Incontinence, No Hematuria, No Retention, No Other Musculoskeletal: No other, No neck pain, No shoulder pain, No arm pain; back pain; No hand pain, No leg pain, No foot pain Skin: No Rash, No Lesions, No Jaundice, No Bruising, No Other Objective Vitals Vital Signs Date Time Temp Pulse Resp B/P (MAP) Pulse Ox O2 Delivery O2 Flow Rate FiO2 03/03/25 09:00 98.5 91 17 84/78 (80) 95 98.5 03/02/25 20:00 Room Air* 0 21 Intake/Output Intake and Output 03/03/25 07:00 Intake Total 1195 ml Output Total 4025 ml Balance -2830 ml Intake Oral 1195 ml Output Urine Total 4025 ml # Bowel Movements 1 Exam GEN: Healthy appearing, well-developed, NAD. HEENT: NC/AT; MMM. CV: RRR, no m/r/g. LUNGS: CTAB, no w/r/c. ABD: Soft, NT/ND, NBS, no masses or organomegaly. EXT: skin Warm, well perfused. no rashes. Pitting edema bilaterally 2+ secretions, left lower extremity more tender NEURO: Ambulating with no limitations. No focal deficits. Medications Current Medications Medications Dose Ordered Sig/Jason Route Start Time Stop Time Status Last Admin Dose Admin Acetaminophen/ Hydrocodone Bitart 1 tab Q4HP PRN PO 03/01/25 22:30 03/03/25 00:13 1 TAB Ondansetron HCl 4 mg Q4HP PRN IV 03/01/25 22:30 Acetaminophen 650 mg Q6HP PRN PO 03/01/25 22:30 Enoxaparin Sodium 40 mg DAILY SC 03/01/25 22:30 03/02/25 09:50 40 MG Furosemide 40 mg DAILY IV 03/02/25 10:00 03/02/25 09:49 40 MG Hydromorphone HCl 0.25 mg Q4HPRN PRN IV 03/01/25 22:30 Ferrous Sulfate 325 mg DAILY PO 03/02/25 10:00 03/02/25 09:49 325 MG Laboratory Results Laboratory Tests 03/03/25 06:43 Chemistry Test 03/03/25 06:43 Albumin 2.4 g/dL (3.2-4.8) L Calcium Level 7.7 mg/dL (8.7-10.4) L Total Protein 4.6 g/dL (5.7-8.2) L Coagulation Test 03/02/25 11:42 Prothrombin Time 11.9 sec (9.3-11.8) H Prothrombin Time INR 1.14 (0.9-1.15) LFT Test 03/03/25 06:43 Alanine Aminotransferase (ALT) 67 U/L (7-40) H Alkaline Phosphatase 110 U/L (46-116) Aspartate Amino Transferase (AST) 45 U/L (13-40) H Total Bilirubin 0.6 mg/dL (0.2-1.0) Urinalysis Test 03/01/25 21:25 Urine Color Light-yellow (Yellow) Urine Clarity Clear (Clear) Urine pH 6.0 (5.0-9.0) Urine Specific [place] 1.011 (1.001-1.035) Urine Protein Negative (Negative) Urine Ketones Negative (Negative) Urine Blood Negative /uL (Negative) Urine Nitrite Negative (Negative) Urine Bilirubin Negative (Negative) Urine Urobilinogen Normal mg/dL (Negative) Urine Leukocyte Esterase Negative /uL (Negative) Urine RBC 1 /hpf (0 - 4) Urine Microscopic WBC 1 /HPF (0-5) Urine Squamous Epithelial Cells Few /hpf (<5) Urine Bacteria None seen /hpf (None Seen) Urine Mucus Few (None Seen) Urine Glucose Normal mg/dL (Normal) Labs and/or images reviewed: Labs reviewed by me, Image(s) reviewed by me Assessment/Plan Assessment/Plan 69-year-old female with a past medical history of arthritis, anemia, chronic back pain, morbid obesity and surgical history of bilateral knee replacement has come to the ER with chief complaints of bilateral lower limb edema for the past 8 days, rendering her unable to get out of bed and ambulate. Patient reports that she has been mostly bedridden for over 9 months due to chronic back pain, but uses a walker to ambulate, however, in the past 8 days has not been able to do so prompting her to visit the ER. She states that her neurologist has given her a stimulator device ( which is attached to her back and abdomen) for her back pain 9 days ago, which has helped with the pain and her PCP also prescribed her Lasix for 1 week which has run out. she denies any chills, fever, nausea, vomiting, diarrhea, shortness of breath, palpitations, sick contacts, cough, body pain. On admission her vitals are stable, potassium is low at 3.2, hemoglobin at 8.9, ALT 104, AST 82, ALT 144, BNP 305.69. Chest x-ray is normal. We are admitting the patient for further workup and management 03/02: Patient presenting with lower extremity swelling. Pending echocardiogram. BNP mildly elevated at 300. Started on furosemide 40 IV daily. Patient also has elevated liver enzymes on liver ultrasound showing hepatic steatosis. We will do ultrasound lower extremities for DVT ruled out. Possible cirrhosis versus CHF pending echo. Continue IV Lasix. getting inr and hepatitis panel. no proteinuria. 03/03: Patient looks euvolemic, no rales, pitting edema much improved. She is 70s to have lower extremity neuropathy pain but has failed gabapentin and Lyrica. She is to follow up with her pain management. She has a spinal stimulator. Patient uses walker at home, feels unsteady on her feet which is partially the reason she came. We will go to PT eval. We will also try to get echo read today. To ruled out CHF. Likely volume overload cirrhosis versus venous insufficiency versus CHF. Likely discharge today. #acute CHF exacerbation, diastolic dysfunction likely -BNP 305.69 -EKG -Echo -Tele monitor -Strict input and output monitoring -Maintain fluid restriction -UDS negative -furosemide 40 mg IV once and daily OD #Hypokalemia -Repleted -Magnesium 1.9 #Hypochromic, normocytic anemia #Iron deficiency -Iron panel: iron 35, tibc 142, ferritin 124.5 -Stool occult blood -ferrous sulphate 325mg po daily #Transaminitis #Hepatic steatosis and intrinsic hepatocellular disease -ALT 104, AST 82, ALP 144 -Ultrasound of the liver: Hepatomegaly with increased hepatic echogenicity which may reflect hepatic steatosis or intrinsic hepatocellular disease -outpt followup #Chronic back pain -Pain management with: -acetaminophen 650 mg p.o. q.6 PRN for mild pain -[place] 5/325 mg q.4 PRN for moderate pain and -Dilaudid 0.25 mg IV once and 0.25 mg q.4 PRN for severe pain #Morbid obesity, BMI 37.2 kg/m2 - patient was counseled regarding need of exercise, weight loss, dietary modification and healthy lifestyle for the 8 minutes Tele Full code Plan discussed with: Patient My Orders Orders - GWEN GONZALEZ MD Procedure Category Date Status Time Acute Hepatitis Panel LAB 03/02/25 In Process 10:44 Bilat Lower Dvt US 03/02/25 Resulted 10:49 Date of Service: Mar 07, 2025 Billing Provider: GWEN GONZALEZ MD Common Visit Codes: [id number] INP/OBS CARE(HIGH) GWEN GONZALEZ MD Mar 03, 2025 10:30
[2025-03-03] MEDS: HYDROmorphone HCL 2 MG/ML VL/or syr IV PRN (10:43)
[2025-03-03 11:36] LABS: Hepatitis B Surface Antigen Negative (Negative)
[2025-03-03 12:10] LABS: Hepatitis C Antibody Negative (Negative)
[2025-03-03] MEDS ORDERED: FURO1TAB33 PO (14:23)
--- NOTE | 2025-03-03 14:24 | DVHDS2 ---
Discharge Summary Date of Admission Mar 01, 2025 at 22:16 Date of Discharge: Mar 03, 2025 Labs/Diagnostic Data: Laboratory Results Test 03/03/25 06:43 03/02/25 11:42 03/02/25 11:06 03/01/25 21:25 White Blood Count 3.7 10^3/uL (4.4-10.8) Red Blood Count 2.83 10^6/uL (4.0-5.20) Hemoglobin 8.1 g/dL (12.2-16.2) Hematocrit 24.0 % (36.0-46.0) Mean Corpuscular Volume 84.8 fL (80.0-100.0) Mean Corpuscular Hemoglobin 28.5 pg (28.0-32.0) Mean Corpuscular Hemoglobin Concent 33.7 g/dL (32.0-36.0) Red Cell Distribution Width 15.8 % (11.8-14.3) Platelet Count 242 10^3/uL (140-450) Mean Platelet Volume 7.7 fL (6.9-10.8) Neutrophils (%) (Auto) 50.2 % (37.0-80.0) Lymphocytes (%) (Auto) 33.6 % (10.0-50.0) Monocytes (%) (Auto) 14.3 % (0.0-12.0) Eosinophils (%) (Auto) 1.4 % (0.0-7.0) Basophils (%) (Auto) 0.5 % (0.0-2.0) Neutrophils # (Auto) 1.9 10 ^3/uL (1.6-8.6) Lymphocytes # (Auto) 1.3 10 ^3/uL (0.4-5.4) Monocytes # (Auto) 0.5 10 ^3/uL (0-1.3) Eosinophils # (Auto) 0.1 10 ^3/uL (0-0.8) Basophils # (Auto) 0 10 ^3/uL (0-0.2) Nucleated Red Blood Cells 0.1 % Sodium Level 143 mmol/L (136-145) Potassium Level 3.4 mmol/L (3.5-5.1) Chloride Level 103 mmol/L (98-107) Carbon Dioxide Level 31 mmol/L (20-31) Anion Gap 9 (5-15) Blood Urea Nitrogen 11 mg/dL (9-23) Creatinine 0.84 mg/dL (0.550-1.02) Glomerular Filtration Rate Calc 75 mL/min (>90) BUN/Creatinine Ratio 13.1 (10.0-20.0) Serum Glucose 90 mg/dL (74-106) Calcium Level 7.7 mg/dL (8.7-10.4) Total Bilirubin 0.6 mg/dL (0.2-1.0) Aspartate Amino Transferase (AST) 45 U/L (13-40) Alanine Aminotransferase (ALT) 67 U/L (7-40) Alkaline Phosphatase 110 U/L (46-116) Total Protein 4.6 g/dL (5.7-8.2) Albumin 2.4 g/dL (3.2-4.8) Prothrombin Time 11.9 sec (9.3-11.8) Prothrombin Time INR 1.14 (0.9-1.15) Hepatitis A IgM Antibody Negative Hepatitis B Surface Antigen Negative (Negative) Hepatitis B Core IgM Antibody Negative (Negative) Hepatitis C Antibody Negative (Negative) Stool Occult Blood Negative (Negative) Stool Occult Blood Sample #3 (Negative) Urine Color Light-yellow (Yellow) Urine Clarity Clear (Clear) Urine pH 6.0 (5.0-9.0) Urine Specific [place] 1.011 (1.001-1.035) Urine Protein Negative (Negative) Urine Ketones Negative (Negative) Urine Blood Negative /uL (Negative) Urine Nitrite Negative (Negative) Urine Bilirubin Negative (Negative) Urine Urobilinogen Normal mg/dL (Negative) Urine Leukocyte Esterase Negative /uL (Negative) Urine RBC 1 /hpf (0 - 4) Urine Microscopic WBC 1 /HPF (0-5) Urine Squamous Epithelial Cells Few /hpf (<5) Urine Bacteria None seen /hpf (None Seen) Urine Mucus Few (None Seen) Urine Glucose Normal mg/dL (Normal) Urine Opiates Screen Pos (NEGATIVE) Urine Fentanyl Screen Neg (NEGATIVE) Urine Barbiturates Screen Neg (NEGATIVE) Urine Phencyclidine Screen Neg (NEGATIVE) Urine Amphetamines Screen Neg (NEGATIVE) Urine Benzodiazepines Screen Neg (NEGATIVE) Urine Cocaine Screen Neg (NEGATIVE) Urine Cannabinoids Screen Neg (NEGATIVE) Test 03/01/25 19:41 Magnesium Level 1.9 mg/dL (1.6-2.6) Iron Level 35 ug/dL (50-170) Total Iron Binding Capacity 152 ug/dL (250-425) Percent Iron Saturation 23.0 % (15-50) Ferritin 124.5 ng/mL (10-291) B-Type Natriuretic Peptide 305.69 pg/mL (0-100) Vitamin B12 Level > 4000 pg/mL (211-911) Folic Acid 12.74 ng/mL (>5.38) Other Laboratory Tests 03/03/25 06:43 Brief Hx & Hospital Course: 69-year-old female with a past medical history of arthritis, anemia, chronic back pain, morbid obesity and surgical history of bilateral knee replacement has come to the ER with chief complaints of bilateral lower limb edema for the past 8 days, rendering her unable to get out of bed and ambulate. Patient reports that she has been mostly bedridden for over 9 months due to chronic back pain, but uses a walker to ambulate, however, in the past 8 days has not been able to do so prompting her to visit the ER. She states that her neurologist has given her a stimulator device ( which is attached to her back and abdomen) for her back pain 9 days ago, which has helped with the pain and her PCP also prescribed her Lasix for 1 week which has run out. she denies any chills, fever, nausea, vomiting, diarrhea, shortness of breath, palpitations, sick contacts, cough, body pain. On admission her vitals are stable, potassium is low at 3.2, hemoglobin at 8.9, ALT 104, AST 82, ALT 144, BNP 305.69. Chest x-ray is normal. We are admitting the patient for further workup and management. 03/02: Patient presenting with lower extremity swelling. Pending echocardiogram. BNP mildly elevated at 300. Started on furosemide 40 IV daily. Patient also has elevated liver enzymes on liver ultrasound showing hepatic steatosis. We will do ultrasound lower extremities for DVT ruled out. Possible cirrhosis versus CHF pending echo. Continue IV Lasix. getting inr and hepatitis panel. no proteinuria. 03/03: Patient looks euvolemic, no rales, pitting edema much improved. She is 70s to have lower extremity neuropathy pain but has failed gabapentin and Lyrica. She is to follow up with her pain management. She has a spinal stimulator. Patient uses walker at home, feels unsteady on her feet which is partially the reason she came. We will go to PT kay. We will also try to get echo read today. To ruled out CHF. Likely volume overload cirrhosis versus venous insufficiency versus CHF. - on preliminary inspection of echocardiogram EF 55%. Patient does have right popliteal non obstructive thrombus. Diagnosis: Acute CHF exacerbation, diastolic dysfunction Hepatic steatosis Hepatomegaly Transaminitis Cirrhosis [place] possible Hypokalemia, repleted Hypochromic normocytic anemia Iron-deficiency anemia Chronic back pain Morbid obesity BMI 37.2 Plan: - Take Lasix 20 prn for lower extremity swelling . - do not take Tylenol. - patient's symptoms maybe from neuropathy, failed gabapentin and Lyrica, to follow up with PCP. - Follow up with PCP to review discharge and to review echocardiogram findings . PCP to review hepatitis panel. Defer schedule diuretics to PCP review. - continue other home medications. - continuing to use front wheel walker to ambulate. - one-week DC clinic follow up Condition at Discharge: Fair Final Diagnosis/Problems List Acute CHF exacerbation, diastolic dysfunction Hepatic steatosis Hepatomegaly Transaminitis Cirrhosis [place] possible Hypokalemia, repleted Hypochromic normocytic anemia Iron-deficiency anemia Chronic back pain Morbid obesity BMI 37.2 Discharge Disposition: Home Discharge Instruct/Medications Scheduled Hydrocodone-Acetaminophen ([place] 10/325MG), 1 TAB OR TID, (Reported) Morphine Sulfate (Morphine Sulfate), 1 TAB PO BID, (Reported) Rizatriptan Benzoate (Maxalt), 10 MG OR PRN, (Reported) Tramadol Hcl (Ultram), 100 MG OR TID, (Reported) Venlafaxine Hydrochloride (Effexor Xr), 75 MG OR TID, (Reported) Miscellaneous Medications [Neurontin], (Reported) [Robaxin], (Reported) Discharge Statement: "Patient was advised to return to the ER or call 911 if any headaches, dizziness, shortness of breath, chest pain, abdominal pain, bleeding, fevers, or worsening of medical condition. Patient was counseled about treatment plan, medications, possible side effects, patientverbalized understanding. All questions were answered to the best of my ability. This discharge took greater then 30 minutes in planning, reviewing documentation, counseling the patient, and discussing with other team members." ASSESSMENT ASSESSMENT Assessment Date of Service: Mar 03, 2025 Billing Provider: GWEN GONZALEZ MD Common Visit Codes: [id number] DISCH DAY >30min GWEN GONZALEZ MD Mar 03, 2025 14:24
--- NOTE | 2025-03-03 14:49 | DVHSR ---
APPROVED REPORT DIMENSIONS LVDd 4.1 (3.8-5.7cm) LA (2D) 3.1 (1.9-4.0cm) Aortic Root 3.8 (2.0-3.7cm) LVDs 3.0 (2.5-4.0cm) LA (MM) (1.9-4.0cm) Aortic Cusp Exc 2.2 (1.5-2.0cm) EF (%) 55.0 (55-70%) Rt. Atrium 3.4 (1.9-4.0cm) Asc. Aorta cm IVSd 1.0 (0.7-1.1cm) RV (D) 3.7 (1.8-2.4cm) PWd 0.8 (0.7-1.1cm) Mitral Valve Mitral Mitral Stenosis E wave 0.53m/s MV Mean GR. mmHg A wave 0.76m/s MV Peak GR. mmHg E/A ratio 0.7 2D MVA cm2 DECEL Time 256ms PRESS 1/2 Time ms Aortic Valve Aortic Valve Aortic Stenosis V1 1.22m/s AO Mean GR. 3mmHg V2 1.09m/s AO Peak GR. 5mmHg LVOT Diameter 2.4 (1.8-2.4cm) Doppler LISSETTE 5.06cm2 Pulmonic Valve V2 1.08m/s Tricuspid Valve TR Velocity 2.79m/s RVSP 37mmHg Other Information Technically limited study due to body habitus.patient position. Conclusion Sinus rhythm. Concentric LVH. Off axis views. Aortic root enlargement. Left atrial enlargement. Dilation of the sinuses of Valsalva. Valves appear to be structurally normal. EF of 60% with normal RV function. Dopplers unremarkable. No pericardial effusion masses or vegetations.
[2025-03-03] MEDS: LACTATED RINGER'S 500 ML IV ONE (15:03)
[2025-03-04] MEDS ORDERED: FUROSEMIDE 20 MG/2 ML VIAL IV SCH (10:00)
--- NOTE | 2025-03-05 13:40 | ECG ---
[facility] Test Date: 2025-03-02 Test Time: 11:30:36 Pat Name: SAMMIE SANTIAGO Department: Room: 0221T A Gender: F Carbonator: ann : 1955 Requested By: DENIS ZAMORA Order Number: [id number] Reading MD: Joshua Jett Measurements Intervals [place] Rate: 86 P: 41 AR: 115 QRS: -12 QRSD: 117 T: 38 QT: 400 QTc: 479 Interpretive Statements Sinus rhythm Atrial premature complexes Borderline short AR interval Nonspecific intraventricular conduction delay Low voltage, extremity leads Electronically Signed On 03-07-2025 17:11:46 PST by Joshua Jett Please click the below link to view image of tracing.
== END 2025-03-03 18:10 | disposition home or self-care (01) | DRG 292 ==
LOC: ER 17:42 → EDUNIT# 17:42 → EDBD 17:42 → OVERFLOW 22:16 → EDBD 22:16 → OVERFLOW 22:35 → TELE-CENTR 03-02 05:40
PROVIDERS: ADMIT Student in an Organized Health Care Education/Training Program; ATTEND Student in an Organized Health Care Education/Training Program
DX: I50.33 Acute on chronic diastolic (congestive) heart failure (principal); E44.0 Moderate protein-calorie malnutrition; K74.60 Unspecified cirrhosis of liver; D50.9 Iron deficiency anemia, unspecified; E66.01 Morbid (severe) obesity due to excess calories; E87.6 Hypokalemia; G89.29 Other chronic pain; Z79.899 Other long term (current) drug therapy; Z68.37 Body mass index [BMI] 37.0-37.9, adult; Z96.653 Presence of artificial knee joint, bilateral
CPT/HCPCS: 36415; 71045; 76705; 80053; 80074; 80307; 81001; 82270; 82607; 82728; 82746; 83540; 83550; 83735; 83880; 85025; 85610; 93005; 93306; 93970; 96374; 97163; G0378

== ENCOUNTER 2025-03-10 16:51 | Inpatient (IN) | payer OTHER, MEDICAID ==
[~2025-03-10] VITALS: Ht 167.6 cm; Wt 97.2 kg
[~2025-03-10 16:51] MED LIST changes: +FURO1TAB33 PO; +MORP15TA PO
[2025-03-10] MEDS: FUROSEMIDE 40 MG/4 ML VIAL IV ONE (17:15)
--- NOTE | 2025-03-10 17:42 | ED.PDOC ---
History of Present Illness HPI Comments 69 y/o obese F is BIBA for c/c of bilateral leg swelling and pain x 2 months. Pain is an 8/10 in severity. Notable recent nerve transmitter and stimulation procedures in June, and 3x weeks ago, respectively. She is on Bumex, currently, for swelling but reports on no improvement to symptoms. Patient de nies any chest pain, shortness of breath, or further acute symptoms. Time Seen by MD: 17:00 Primary Care Provider: UNK Reviewed Notes: Nurses Notes, Technical Illustrations Map Inker Notes, Medications, Allergies Allergies: Coded Allergies: NO KNOWN ALLERGIES (Unverified , 02/24/10) Home Meds Active Scripts Furosemide (Lasix) 20 Mg Tb, 1 TAB PO DAILY PRN, #30 TAB 1 Refill Prov:GWEN GONZALEZ MD 03/03/25 Reported Medications Morphine Sulfate (Morphine Sulfate) 15 Mg Tab, 1 TAB PO BID, #60 TAB 03/02/25 Venlafaxine Hydrochloride (Effexor Xr) 75 Mg Cap, 75 MG OR TID 03/02/11 Rizatriptan Benzoate (Maxalt) 10 Mg Tab, 10 MG OR PRN 03/02/11 Tramadol Hcl (Ultram) 50 Mg Tab, 100 MG OR TID 03/02/11 Hydrocodone-Acetaminophen ([place] 10/325MG) 1 Tab Tb, 1 TAB OR TID 03/02/11 [Robaxin] No Conflict Check 02/24/10 [Neurontin] No Conflict Check 02/24/10 Information Source: Patient, Emergency Med Personnel Mode of Arrival: EMS Severity: Moderate Timing: Months Duration: Since onset Prehospital treatment: 12 Lead EKG, Staff Submarine Warfare Officer Past Medical History PAST MEDICAL HISTORY: Arthritis Surgical History: Cholecystectomy, , Hysterectomy Surgical History (Other): back and bilateral knee surgery OPERATIONS EXAMINER History: No Pertinent OPERATIONS EXAMINER History Family History Family History: Reviewed,noncontributory to illness, Unknown Social History Smoker: Non-Smoker Alcohol: Denies ETOH Use Drugs: Denies Drug Use Lives In: Home Constitutional: denies: chills, diaphoresis, fatigue, fever, malaise, sweats, weakness, others EENTM: denies: blurred vision, double vision, ear bleeding, ear discharge, ear drainage, ear pain, ear ringing, eye pain, eye redness, hearing loss, mouth pain, mouth swelling, nasal discharge, nose bleeding, nose congestion, nose pain, photophobia, tearing, throat pain, throat swelling, voice changes, others Respiratory: denies: cough, hemoptysis, orthopnea, SOB at rest, shortness of breath, SOB with excertion, stridor, wheezing, others Cardiovascular: denies: chest pain, dizzy spells, diaphoresis, Dyspnea on exertion, edema, irregular heart beat, left arm pain, lightheadedness, palpitations, PND, syncope, others Gastrointestinal: denies: abdomen distended, abdominal pain, blood streaked bowels, constipated, diarrhea, dysphagia, difficulty swallowing, hematemesis, melena, nausea, poor appetite, poor fluid intake, rectal bleeding, rectal pain, vomiting, others Genitourinary: denies: abnormal vagina bleeding, burning, dyspareunia, dysuria, flank pain, frequency, hematuria, incontinence, pain, , vagina discharge, urgency, others Neurological: denies: dizziness, fainting, headache, left sided numbness, left sided weakness, numbness, paresthesia, pre-existing deficit, right sided numbness, right sided weakness, seizure, speech problems, tingling, tremors, weakness, others Musculoskeletal: reports: others (bilateral leg swelling and pain ); denies: back pain, gout, joint pain, joint swelling, muscle pain, muscle stiffness, neck pain Integumetry: denies: bruises, change in color, change in hair/nails, dryness, laceration, lesions, lumps, rash, wounds, others Allergic/Immunocompromised: denies: Difficulty Healing, Frequent Infections, Hives, Itching, others Hematologic/Lymphatic: denies: anemia, blood clots, easy bleeding, easy bruising, swollen glands, others Endocrine: denies: excessive hunger, excessive sweating, excessive thirst, excessive urination, flushing, intolerance to cold, intolerance to heat, unexplained weight gain, unexplained weight loss, others Psychiatric: denies: anxiety, bipolar disorder, depression, hopeless, panic disorder, schizophrenia, sleepless, suicidal, others All Other Systems: Reviewed and Negative Physical Exam General Appearance: Moderate Distress HEENT: Normal ENT Inspection, Pharynx Normal, TMs Normal Neck: Full Range of Motion, Non-Tender, Normal, Normal Inspection Respiratory: Chest Non-Tender, Lungs Clear, No Accessory Muscle Use, No Respiratory Distress, Normal Breath Sounds Cardiovascular: No Edema, No JVD, No Murmur, No Gallop, Normal Peripheral Pulses, Regular Rate/Rhythm Breast Exam: Deferred Gastrointestinal: No Organomegaly, Non Tender, No Pulsatile Mass, Normal Bowel Sounds, Soft Genitalia: Deferred Pelvic: Deferred Rectal: Deferred Extremities: No calf tenderness, Normal capillary refill, Pedal edema Musculoskeletal : Apperance: Normal Neurologic: Alert, sign hanger supervisor II-XII nml as Tested, Motor Weakness, Normal Affect, Normal Mood, No Sensory Deficits Cerebellar Function: Normal Reflexes: Normal Skin: Dry, Normal Color, Warm Lymphatic: No Adenopathy Was a procedure done? Was a procedure done?: No Differential Dx Considerations may include: DVT, cellulitis, fluid retention, venous stasis, among others X-Ray, Labs, Meds, VS Vital Signs Date Time Temp Pulse Resp B/P (MAP) Pulse Ox O2 Delivery O2 Flow Rate FiO2 03/10/25 19:45 98.1 72 20 118/72 (87) 97 98.1 03/10/25 19:45 72 18 97 Room Air* 0 03/10/25 18:00 97.1 86 16 121/71 (88) 98 97.1 03/10/25 18:00 86 16 98 Room Air* 0 03/10/25 17:15 126/80 03/10/25 16:52 98.6 85 18 119/63 100 98.6 Lab Test 03/10/25 18:38 03/10/25 17:50 Range/Units Urine Color Light-yellow Yellow Urine Clarity Turbid H Clear Urine pH 8.0 5.0-9.0 Urine Specific [place] 1.012 1.001-1.035 Urine Protein Negative Negative Urine Ketones Negative Negative Urine Blood Negative Negative /uL Urine Nitrite Negative Negative Urine Bilirubin Negative Negative Urine Urobilinogen Normal Negative mg/dL Urine Leukocyte Esterase 3+ Negative /uL Urine RBC 22 0 - 4 /hpf Urine Microscopic WBC 6 H 0-5 /HPF Urine Squamous Epithelial Cells Mod <5 /hpf Urine Amorphous Crystals Few None Seen /hpf Urine Bacteria None seen None Seen /hpf Urine Glucose Normal Normal mg/dL White Blood Count 3.3 L 4.4-10.8 10^3/uL Red Blood Count 2.88 L 4.0-5.20 10^6/uL Hemoglobin 8.3 L 12.2-16.2 g/dL Hematocrit 24.4 L 36.0-46.0 % Mean Corpuscular Volume 84.7 80.0-100.0 fL Mean Corpuscular Hemoglobin 28.6 28.0-32.0 pg Mean Corpuscular Hemoglobin Concent 33.8 32.0-36.0 g/dL Red Cell Distribution Width 15.3 H 11.8-14.3 % Platelet Count 322 140-450 10^3/uL Mean Platelet Volume 7.5 6.9-10.8 fL Neutrophils (%) (Auto) 58.7 37.0-80.0 % Lymphocytes (%) (Auto) 25.7 10.0-50.0 % Monocytes (%) (Auto) 14.1 H 0.0-12.0 % Eosinophils (%) (Auto) 1.0 0.0-7.0 % Basophils (%) (Auto) 0.5 0.0-2.0 % Neutrophils # (Auto) 1.9 1.6-8.6 10 ^3/uL Lymphocytes # (Auto) 0.8 0.4-5.4 10 ^3/uL Monocytes # (Auto) 0.5 0-1.3 10 ^3/uL Eosinophils # (Auto) 0 0-0.8 10 ^3/uL Basophils # (Auto) 0 0-0.2 10 ^3/uL Nucleated Red Blood Cells 0.2 % Sodium Level 142 136-145 mmol/L Potassium Level 3.8 3.5-5.1 mmol/L Chloride Level 104 98-107 mmol/L Carbon Dioxide Level 31 20-31 mmol/L Anion Gap 7 5-15 Blood Urea Nitrogen 16 9-23 mg/dL Creatinine 1.27 H 0.550-1.02 mg/dL Glomerular Filtration Rate Calc 46 >90 mL/min BUN/Creatinine Ratio 12.6 10.0-20.0 Serum Glucose 108 H 74-106 mg/dL Calcium Level 8.4 L 8.7-10.4 mg/dL Current Medications Medications (Trade) Dose Ordered Sig/Jason Route Start Time Stop Time Status Last Admin Furosemide (Lasix Injection) 40 mg ONCE ONCE IV 03/10/25 17:15 03/10/25 17:16 DC 03/10/25 17:15 IV Hep-Lock was established The patient was given Lasix 20 mg IV push The patient's CBC shows anemia with a hemoglobin of 8.3 hematocrit of 24.4 The urine test is positive for UTI The patient is being admitted to the hospitalist. The patient will be given Rocephin IV piggyback The patient understands and agrees with the management Images Reviewed?: Images reviewed and evaluated by me Time of 1ST Reevaluation: 17:30 Reevaluation 1ST: Unchanged Patient Education/Counseling: Diagnosis, Treatment, Prognosis Family Education/Counseling: No Family Present SEPSIS Sepsis Screen Physician Orders Heplock Iv (03/10/25 17:02) Staff Submarine Warfare Officer (03/10/25 17:02) Blood Pressure (03/10/25 17:02) Pulse Oximetry (03/10/25 17:02) Electrocardigram (03/10/25 17:02) Insert Hsah Catheter QSHIFT (03/10/25 19:00) Vital Signs Date Time Temp Pulse Resp B/P (MAP) Pulse Ox O2 Delivery O2 Flow Rate FiO2 03/10/25 19:45 98.1 72 20 118/72 (87) 97 98.1 03/10/25 19:45 72 18 97 Room Air* 0 03/10/25 18:00 97.1 86 16 121/71 (88) 98 97.1 03/10/25 18:00 86 16 98 Room Air* 0 03/10/25 17:15 126/80 03/10/25 16:52 98.6 85 18 119/63 100 98.6 Laboratory Tests Test 03/10/25 17:50 White Blood Count 3.3 10^3/uL (4.4-10.8) L Medications Medications Dose Ordered Sig/Jason Route Start Time Stop Time Status Last Admin Dose Admin Furosemide 40 mg ONCE ONCE IV 03/10/25 17:15 03/10/25 17:16 DC 03/10/25 17:15 Departure 1 Departure Time of Disposition: 20:10 Impression: Primary Impression: Peripheral edema Additional Impression: UTI (urinary tract infection) Qualified Codes: N30.00 - Acute cystitis without hematuria Disposition: ADMITTED INPATIENT Admit to: Med Surg Condition: Fair Critical Care Note Critical Care Time?: No Stability Stability form required: Yes Unstable for transfer: Telemetry monitoring (Telemetry monitoring required), ED Physician Assesment (Clinical assesment) Heart Score Heart Score: Heart Score Response (Comments) Value History N/A 0 EKG N/A 0 Age N/A 0 Risk Factors N/A 0 Troponin N/A 0 Total 0 I personally scribed for RONEY CHOE MD ([email or web address]) on 03/10/25 at 17:42. Electronically submitted by Ciro Reza [email or web address]). RONEY CHOE MD Mar 10, 2025 17:42
[2025-03-10 18:00] VITALS: PULSE 86; RESP 16; O2SAT 98
[2025-03-10 18:03] LABS: Hematocrit 24.4 % (36.0-46.0); Hemoglobin 8.3 g/dL (12.2-16.2); Mean Corpuscular Hemoglobin 28.6 pg (28.0-32.0); Mean Corpuscular Volume 84.7 fL (80.0-100.0); Nucleated Red Blood Cells % 0.2 %
[2025-03-10 18:15] LABS: Chloride 104 mmol/L (98-107); Potassium 3.8 mmol/L (3.5-5.1); Sodium 142 mmol/L (136-145)
[2025-03-10 18:16] LABS: Anion Gap 7 (5-15); Carbon Dioxide 31 mmol/L (20-31)
[2025-03-10 18:22] LABS: BUN/Creatinine Ratio 12.6 (10.0-20.0); Blood Urea Nitrogen 16 mg/dL (9-23)
[2025-03-10 18:26] LABS: Calcium 8.4 mg/dL (8.7-10.4); Glucose 108 mg/dL (74-106)
[2025-03-10 19:25] LABS: Urine Amorphous Crystal FEW /hpf (None Seen); Urine Protein, UAD Negative (Negative)
[2025-03-10 19:45] VITALS: PULSE 72; RESP 18; O2SAT 97
[2025-03-10] MEDS ORDERED: ONDANSETRON HCL 4 MG/2 ML VIAL IV PRN (20:15)
[2025-03-10] MEDS: CALCIUM GLUC 1,000mg/50ml-NS 50 ML IV ONE (20:30)
--- NOTE | 2025-03-10 20:49 | DVHHP2 ---
History of Present Illness Reason for Visit: Peripheral edema History of Present Illness The patient is a 69 year female with past medical history of arthritis presented to [facility] ED with complaint of bilateral leg swelling and pain for the past 2 months. Patient reports that she has been experiencing lower ex tremity pain, rating 8/10 numeric scale, getting worse that prompted this visit. Patient is currently on Bumex, but reports no improvement of symptoms. Patient was seen and evaluated in the ED, laboratory data shows WBC 3.3, hemoglobin 8.3, hematocrit 24.4, platelets 322, sodium 142, potassium 3.8, BUN 16, creatinine 1.27, glucose 108, calcium 8.4, blood pressure 118/72, heart rate 72, temperature 98.1 F, O2 saturation 97% on room air. Please see medication orders section in the computer. On my assessment, patient denied chest pain, no headache, dizziness, diaphoresis, shortness of breaths, abdominal pain, diarrhea, nausea, vomiting, fever, no chills. Patient was admitted for further evaluation and medical management. Past Medical History Arthritis Past Surgical History Cholecystectomy, , Hysterectomy, Back and bilateral knee surgery Family History Reviewed, noncontributory to the management of this case. Past Social History The patient lives at home, denies smoking, alcohol or illicit drugs abuse. Review of Systems Constitutional: Yes: Weakness; No: Fever, Chills, Sweats, Malaise, Other Eyes: No: Pain, Vision change, Conjunctivae inflammation, Eyelid inflammation, Other, Redness ENT: No: Ear pain, Ear discharge, Nose pain, Nose discharge, Nose congestion, Mouth pain, Mouth swelling, Throat pain, Throat swelling, Other Respiratory: No: Cough, Dry, Shortness of breath, SOB with excertion, Wheezing, Hemoptysis, Pleuritic Pain, Sputum, Wheezing, Other Cardiovascular: Edema; No: Chest Pain, Palpitations, Orthopnea, Paroxysmal Noc. Dyspnea, Lt Headedness, Other Gastrointestinal: No: Nausea, Vomiting, Abdominal Pain, Diarrhea, Constipation, Melena, Hematochezia, Other Genitourinary: No Dysuria, No Frequency, No Incontinence, No Hematuria, No Retention, No Other Musculoskeletal: other (bilateral leg swelling and pain ); No: neck pain, shoulder pain, arm pain, back pain, hand pain, leg pain, foot pain Skin: No: Rash, Lesions, Jaundice, Bruising, Other Neurological: No: Weakness, Numbness, Incoordination, Change in speech, Confusion, Seizures, Other Allergies: Coded Allergies: NO KNOWN ALLERGIES (Unverified , 02/24/10) Medications Current Medications Medications Dose Ordered Sig/Jason Route Start Time Stop Time Status Last Admin Dose Admin Ceftriaxone Sodium 50 ml @ 100 mls/hr DAILY@09 IV 03/11/25 09:00 Sodium Chloride 10 ml Q8HR IV 03/10/25 22:00 Acetaminophen/ Hydrocodone Bitart 1 tab Q4HP PRN PO 03/10/25 20:15 Ondansetron HCl 4 mg Q4HP PRN IV 03/10/25 20:15 Docusate Sodium 100 mg BIDPRN PRN PO 03/10/25 20:15 Acetaminophen 650 mg Q6HP PRN PO 03/10/25 20:15 Exam Vital Signs Vital Signs Date Time Temp Pulse Resp B/P (MAP) Pulse Ox O2 Delivery O2 Flow Rate FiO2 03/10/25 19:45 98.1 72 20 118/72 (87) 97 98.1 03/10/25 19:45 Room Air* 0 21 General Appearance: Alert, Oriented X3, Cooperative, No acute distress HEENT: Atraumatic, PERRLA, EOMI, Mucous membr. moist/pink Respiratory: Normal air movement Cardiovascular: Regular rate, Normal S1, Normal S2, No murmurs Abdominal: Normal bowel sounds, Soft, No tenderness, No hepatospenomegaly, No masses Extremities: No clubbing, No cyanosis, No edema, Normal pulses, No tenderness/swelling Skin: No rashes, No significant lesion Neuro: Normal speech, Normal tone, Sensation intact, Cranial nerves 3-12 NL, Reflexes 2+, Other (Generalized weakness) Psych/Mental Status: Mental status NL, Mood NL Labs/Xrays Labs Test 03/10/25 18:38 03/10/25 17:50 Range/Units Urine Color Light-yellow Yellow Urine Clarity Turbid H Clear Urine pH 8.0 5.0-9.0 Urine Specific [place] 1.012 1.001-1.035 Urine Protein Negative Negative Urine Ketones Negative Negative Urine Blood Negative Negative /uL Urine Nitrite Negative Negative Urine Bilirubin Negative Negative Urine Urobilinogen Normal Negative mg/dL Urine Leukocyte Esterase 3+ Negative /uL Urine RBC 22 0 - 4 /hpf Urine Microscopic WBC 6 H 0-5 /HPF Urine Squamous Epithelial Cells Mod <5 /hpf Urine Amorphous Crystals Few None Seen /hpf Urine Bacteria None seen None Seen /hpf Urine Glucose Normal Normal mg/dL White Blood Count 3.3 L 4.4-10.8 10^3/uL Red Blood Count 2.88 L 4.0-5.20 10^6/uL Hemoglobin 8.3 L 12.2-16.2 g/dL Hematocrit 24.4 L 36.0-46.0 % Mean Corpuscular Volume 84.7 80.0-100.0 fL Mean Corpuscular Hemoglobin 28.6 28.0-32.0 pg Mean Corpuscular Hemoglobin Concent 33.8 32.0-36.0 g/dL Red Cell Distribution Width 15.3 H 11.8-14.3 % Platelet Count 322 140-450 10^3/uL Mean Platelet Volume 7.5 6.9-10.8 fL Neutrophils (%) (Auto) 58.7 37.0-80.0 % Lymphocytes (%) (Auto) 25.7 10.0-50.0 % Monocytes (%) (Auto) 14.1 H 0.0-12.0 % Eosinophils (%) (Auto) 1.0 0.0-7.0 % Basophils (%) (Auto) 0.5 0.0-2.0 % Neutrophils # (Auto) 1.9 1.6-8.6 10 ^3/uL Lymphocytes # (Auto) 0.8 0.4-5.4 10 ^3/uL Monocytes # (Auto) 0.5 0-1.3 10 ^3/uL Eosinophils # (Auto) 0 0-0.8 10 ^3/uL Basophils # (Auto) 0 0-0.2 10 ^3/uL Nucleated Red Blood Cells 0.2 % Sodium Level 142 136-145 mmol/L Potassium Level 3.8 3.5-5.1 mmol/L Chloride Level 104 98-107 mmol/L Carbon Dioxide Level 31 20-31 mmol/L Anion Gap 7 5-15 Blood Urea Nitrogen 16 9-23 mg/dL Creatinine 1.27 H 0.550-1.02 mg/dL Glomerular Filtration Rate Calc 46 >90 mL/min BUN/Creatinine Ratio 12.6 10.0-20.0 Serum Glucose 108 H 74-106 mg/dL Calcium Level 8.4 L 8.7-10.4 mg/dL SEPSIS Sepsis Screen Date sepsis recognized/suspect: Mar 10, 2025 Time Sepsis recognized/suspect: 1946 Recent Procedure: No On Antibiotic Therapy: No Respiratory Rate >20: No Heart Rate >90: No Temp<36 C (96.8 F) or >38.3 C: No SBP <90 or MAP <65 mmHG: No New Acute Mental Status Change: No Is the patient on CPAP, BIPAP,: No Physician Orders Heplock Iv (03/10/25 17:02) Dog Food Dough Mixer (03/10/25 17:02) Blood Pressure (03/10/25 17:02) Pulse Oximetry (03/10/25:02) Electrocardigram (03/10/25:) Insert Shah Catheter QSHIFT (03/10/25 19:00) Ceftriaxone 1gm/50ml (Rocephin) (03/11/25 09:00) Type And Screen (03/10/25 20:15) B-Type Natriuretic Peptide (03/10/25 20:15) Allergies (03/10/25 20:15) Code Status (03/10/25 20:15) Sodium Chloride Lock (Saline Lock Ns) (03/10/25 22:00) Oxygen Per Hour (03/10/25 20:15) Hydrocodone-Acet 5/325mg Tab (Ute 5/32 (03/10/25 20:15) Ondansetron Hcl (Zofran) (03/10/25 20:15) Docusate Sodium Capsule (Colace Capsule) (03/10/25 20:15) Fall Risk Precautions In Place QSHIFT (03/10/25 20:15) Complete Blood Count (03/11/25 04:00) Comprehensive Metabolic Panel (03/11/25 04:00) Cardiac Diet-2gna,Lofat,Lochol (03/11/25 Breakfast) Condition: Serious (03/10/25 20:15) Acetaminophen Tablet (Tylenol Tablet) (03/10/25 20:15) Maintain Bed Rest (03/10/25 20:15) Sequential Compression Device (03/10/25 ) * Orthopedic Consult (03/10/25 20:18) Calcium Gluc 1,000mg/50ml-Ns (03/10/25 20:30) Admit (03/10/25 20:46) Nitroglycerin Sublingual (Ntrostat Subli (03/10/25 21:00) Morphine Sulfate Injection (03/10/25 21:00) Stat Ekg For Chest Pain (03/10/25 20:46) Notify Md Of Changes From Base (03/10/25 20:46) Humid System Operator For 24 Hours (03/10/25 20:46) Emergency Dysrhythmia Protocol (03/10/25 20:46) Rhythm Strips Once Every Shift (03/10/25 20:46) Oxygen By Nasal Cannula (03/10/25 20:46) Furosemide Injection (Lasix Injection) (03/11/25 10:00) Echo 2d Mode Cardiac Dop (03/10/25 20:46) Vital Signs Date Time Temp Pulse Resp B/P (MAP) Pulse Ox O2 Delivery O2 Flow Rate FiO2 03/10/25 19:45 98.1 72 20 118/72 (87) 97 98.1 03/10/25 19:45 72 18 97 Room Air* 0 03/10/25 18:00 97.1 86 16 121/71 (88) 98 97.1 03/10/25 18:00 86 16 98 Room Air* 0 03/10/25 17:15 126/80 03/10/25 16:52 98.6 85 18 119/63 100 98.6 Laboratory Tests Test 03/10/25 17:50 White Blood Count 3.3 10^3/uL (4.4-10.8) L Medications Medications Dose Ordered Sig/Jason Route Start Time Stop Time Status Last Admin Dose Admin Furosemide 40 mg ONCE ONCE IV 03/10/25 17:15 03/10/25 17:16 DC 03/10/25 17:15 40 MG Assessment/Plan Assessment/Plan Peripheral edema Anemia, unspecified UTI (urinary tract infection) Acute cystitis without hematuria Plan 1. Admit to telemetry unit 2. Breathing treatment 3. Pain control management 4. Management of fluids and electrolytes 5. Consultation for hospitalist 6. Diagnostic tests chest x-ray 7. DVT prophylaxis on aspirin 8. Repeat labs CBC, CMP in a.m. 9. Continue with current medical management 10. Treatment plan discussed with patient and RN. Patient verbalized understanding. Plan discussed with: Patient, Other (RN) My Orders Orders - REBECCA CANO DNP Procedure Category Date Status Time Ceftriaxone 1gm/50ml PHA 03/11/25 In Process (Rocephin) 09:00 Type And Screen BBK 03/10/25 Logged 20:15 B-Type Natriuretic LAB 03/10/25 In Process Peptide 20:15 Allergies MARYLOU 03/10/25 In Process 20:15 Code Status CODE 03/10/25 Transmitted 20:15 Sodium Chloride Lock PHA 03/10/25 In Process (Saline Lock Ns) 22:00 Oxygen Per Hour RT 03/10/25 Transmitted 20:15 Hydrocodone-Acet PHA 03/10/25 In Process 5/325mg Tab (Ute 20:15 Ondansetron Hcl PHA 03/10/25 In Process (Zofran) 20:15 Docusate Sodium PHA 03/10/25 In Process Capsule (Colace 20:15 Fall Risk Precautions MARYLOU 03/10/[address] 20:15 Complete Blood Count LAB 03/11/25 Verified 04:00 Comprehensive LAB 03/11/25 Verified Metabolic Panel 04:00 Cardiac DIET 03/11/25 Transmitted Diet-2gna,Lofat,Lochol Breakfast Condition: Serious MARYLOU 03/10/25 In Process 20:15 Acetaminophen Tablet PHA 03/10/25 In Process (Tylenol Tablet) 20:15 Maintain Bed Rest MARYLOU 03/10/25 In Process 20:15 Sequential MARYLOU 03/10/25 In Process Compression Device * Orthopedic Consult CONS 03/10/25 Transmitted 20:18 Calcium Gluc PHA 03/10/25 In Process 1,000mg/50ml-Ns 20:30 Admit ADMIT 03/10/25 Verified 20:46 Nitroglycerin PHA 03/10/25 Verified Sublingual (Ntrostat 21:00 Morphine Sulfate PHA 03/10/25 Verified Injection 21:[address] Chest [facility] 03/10/25 Verified Pain 20:[address] [facility] 03/10/25 Verified From Base 20:[address] [facility] 03/10/25 Verified 24 Hours 20:[address] [facility] 03/10/25 Verified Protocol 20:[address] [facility] 03/10/25 Verified Every Shift 20:46 Oxygen By Nasal RT 03/10/25 Verified Cannula 20:46 Furosemide Injection PHA 03/11/25 Verified (Lasix Injection) 10:00 Echo 2d Mode Cardiac US 03/10/25 Verified DOP 20:46 Problem List: (1) Peripheral edema (2) Anemia, unspecified (3) UTI (urinary tract infection) (4) Acute cystitis without hematuria Date of Service: Mar 10, 2025 Billing Provider: REBECCA CANO DNP Common Visit Codes: [id number] INP/OBS CARE (HIGH) REBECCA CANO DNP Mar 10, 2025 20:49
[2025-03-10] MEDS ORDERED: NITROGLYCERIN 0.4 MG SL TAB SL PRN (21:00)
[2025-03-10] MEDS ORDERED: MORPHINE SULFATE INJ 2 MG/ml SYRG IV PRN (21:00)
[2025-03-10] MEDS: SODIUM CHLOR 0.9% PF (SALINE LOCK) 10ML VIAL/SYR IV SCH (21:49)
[2025-03-11] VITALS (9 sets, daily range): BP systolic 93–125; BP diastolic 47–76; PULSE 80–99; RESP 16–19; TEMP 97.8–98.9; O2SAT 93–99
[2025-03-11] MEDS: HYDROcodone-ACET 5/325MG TAB ONE (02:20)
[2025-03-11] MEDS: HYDROcodone-ACET 5/325MG TAB PO PRN (02:22)
[2025-03-11 06:21] LABS: Hemoglobin 7.2 g/dL (12.2-16.2); Nucleated Red Blood Cells % 0.0 %
[2025-03-11 06:24] LABS: Hematocrit 21.4 % (36.0-46.0); Mean Corpuscular Hemoglobin 28.6 pg (28.0-32.0); Mean Corpuscular Volume 84.5 fL (80.0-100.0)
[2025-03-11 06:41] LABS: Alkaline Phosphatase 99 U/L (46-116); Anion Gap 9 (5-15); BUN/Creatinine Ratio 11.7 (10.0-20.0); Bilirubin, Total 0.4 mg/dL (0.2-1.0); Blood Urea Nitrogen 15 mg/dL (9-23); Chloride 105 mmol/L (98-107); Potassium 3.9 mmol/L (3.5-5.1); Sodium 145 mmol/L (136-145)
[2025-03-11 06:46] LABS: Alanine Aminotransferase 46 U/L (7-40); Albumin 2.5 g/dL (3.2-4.8); Calcium 8.2 mg/dL (8.7-10.4); Carbon Dioxide 31 mmol/L (20-31); Glucose 106 mg/dL (74-106); Total Protein 4.7 g/dL (5.7-8.2)
[2025-03-11] MEDS: FUROSEMIDE 40 MG/4 ML VIAL IV SCH (10:04)
--- NOTE | 2025-03-11 12:55 | DVHPN2 ---
Reviewed: Care Plan Changes from previous H/P or p: No Changes Eyes: No Pain, No Vision change, No Conjunctivae inflammation, No Eyelid inflammation, No Other, No Redness ENT: No Ear pain, No Ear discharge, No Nose pain, No Nose discharge, No Nose congestion, No Mouth pain, No Mouth swelling, No Throat pain, No Throat swelling, No Other Cardiovascular: No Chest Pain, No Palpitations, No Orthopnea, No Paroxysmal Noc. Dyspnea; Edema; No Lt Headedness, No Other Respiratory: No Cough, No Dry, No Shortness of breath, No SOB with excertion, No Wheezing, No Hemoptysis, No Pleuritic Pain, No Sputum, No Other Gastrointestinal: No Nausea, No Vomiting, No Abdominal Pain, No Diarrhea, No Constipation, No Melena, No Hematochezia, No Other Genitourinary: No Dysuria, No Frequency, No Incontinence, No Hematuria, No Retention, No Other Musculoskeletal: other (bilateral leg swelling and pain ); No neck pain, No shoulder pain, No arm pain, No back pain, No hand pain, No leg pain, No foot pain Skin: No Rash, No Lesions, No Jaundice, No Bruising, No Other Objective Vitals Vital Signs Date Time Temp Pulse Resp B/P (MAP) Pulse Ox O2 Delivery O2 Flow Rate FiO2 03/11/25 12:31 97.8 87 19 116/70 (85) 96 97.8 03/11/25 07:35 Room Air* 0 21 Intake/Output Intake and Output 03/11/25 07:00 Intake Total 440 ml Output Total 1700 ml Balance -1260 ml Intake Oral 440 ml Output Urine Total 1700 ml Medications Current Medications Medications Dose Ordered Sig/Jason Route Start Time Stop Time Status Last Admin Dose Admin Ceftriaxone Sodium 50 ml @ 100 mls/hr DAILY@09 IV 03/11/25 09:00 03/11/25 09:34 100 MLS/HR Sodium Chloride 10 ml Q8HR IV 03/10/25 22:00 03/11/25 05:15 10 ML Acetaminophen/ Hydrocodone Bitart 1 tab Q4HP PRN PO 03/10/25 20:15 03/11/25 02:22 1 TAB Ondansetron HCl 4 mg Q4HP PRN IV 03/10/25 20:15 Docusate Sodium 100 mg BIDPRN PRN PO 03/10/25 20:15 Acetaminophen 650 mg Q6HP PRN PO 03/10/25 20:15 Nitroglycerin 0.4 mg Q5MINP PRN SL 03/10/25 21:00 Morphine Sulfate 2 mg Q30M PRN IV 03/10/25 21:00 Furosemide 40 mg DAILY IV 03/11/25 10:00 03/11/25 10:04 40 MG Aspirin 81 mg DAILY PO 03/11/25 10:00 Laboratory Results Laboratory Tests 03/11/25 05:16 Chemistry Test 03/10/25 17:50 03/11/25 05:16 Calcium Level 8.4 mg/dL (8.7-10.4) L 8.2 mg/dL (8.7-10.4) L Albumin 2.5 g/dL (3.2-4.8) L Total Protein 4.7 g/dL (5.7-8.2) L Cardiac Markers Test 03/10/25 17:50 B-Type Natriuretic Peptide 116.42 pg/mL (0-100) LFT Test 03/11/25 05:16 Alanine Aminotransferase (ALT) 46 U/L (7-40) H Alkaline Phosphatase 99 U/L (46-116) Aspartate Amino Transferase (AST) 38 U/L (13-40) Total Bilirubin 0.4 mg/dL (0.2-1.0) Urinalysis Test 03/10/25 18:38 Urine Color Light-yellow (Yellow) Urine Clarity Turbid (Clear) H Urine pH 8.0 (5.0-9.0) Urine Specific [place] 1.012 (1.001-1.035) Urine Protein Negative (Negative) Urine Ketones Negative (Negative) Urine Blood Negative /uL (Negative) Urine Nitrite Negative (Negative) Urine Bilirubin Negative (Negative) Urine Urobilinogen Normal mg/dL (Negative) Urine Leukocyte Esterase 3+ /uL (Negative) Urine RBC 22 /hpf (0 - 4) Urine Microscopic WBC 6 /HPF (0-5) H Urine Squamous Epithelial Cells Mod /hpf (<5) Urine Amorphous Crystals Few /hpf (None Seen) Urine Bacteria None seen /hpf (None Seen) Urine Glucose Normal mg/dL (Normal) Labs and/or images reviewed: Labs reviewed by me, Image(s) reviewed by me Assessment/Plan Assessment/Plan Acute CHF exacerbation, diastolic dysfunction Lasix, consult for Cardiology Dr. eJtt Bilateral pedal edema: Venous ultrasound ruled out DVT pending Bilateral Knee effusion: Consult for Possible UTI: Rocephin Hepatic steatosis Hepatomegaly Transaminitis Cirrhosis Bernal possible Hypokalemia, repleted Hypochromic normocytic anemia Iron-deficiency anemia Chronic back pain Morbid obesity BMI 37.2 Time spent 68 minutes Advanced care planning time 20 minutes Patient is full code Plan discussed with: Patient Date of Service: Mar 11, 2025 Billing Provider: MARIO NORRIS MD Common Visit Codes: [id number] CARE 30-74 MIN MARIO NORRIS MD Mar 11, 2025 12:55
[2025-03-11 14:09] LABS: Triglycerides 77.0 mg/dL (< 150)
[2025-03-11 14:10] LABS: Magnesium 1.9 mg/dL (1.6-2.6)
--- NOTE | 2025-03-11 14:10 | DVH ---
Bilateral lower extremity venous duplex Clinical History: Bilateral pedal edema Comparison: US BILAT LOWER DVT on DOS: 03/02/25 Technique: Duplex Doppler evaluation of the deep venous systems of both lower extremities from the common femoral veins to the popliteal veins including color Doppler and spectral/pulsed waveform analysis was performed. Findings/impression: Occlusive deep vein thrombosis seen within the mid and distal SFV and nonocclusive deep vein thrombosis seen within the proximal SFV and popliteal vein. No acute occlusive deep vein thrombosis within the left lower extremity. Dr. Lord was notified at 1:58 p.m. PST
[2025-03-11 14:11] LABS: Cholesterol 117.0 mg/dL (< 200); HDL Cholesterol 47.0 mg/dL (40-59)
--- NOTE | 2025-03-11 14:53 | DVHINCON2 ---
Date Seen: Mar 11, 2025 Referring Physician MD Pop Reason for Consultation CHF evaluation, bilateral pedal edema History of Present Illness This is a 69-year-old female patient who presents to emergency room with chief complaint of bilateral lower extremity edema for two months. The patient states that she underwent back surgery in June 2024 and since then has had issues with ambulation. She has noticed that with the last two months she has developed edema to her bilateral lower extremities. She was recently seen at this facility with similar symptoms. The patient reports taking diuretics with no improvement in edema. She returned to emergency room for further evaluation. Cardiology has now been consulted for CHF evaluation. No twelve lead electrocardiogram found in patient's hard chart or on [employer] system. shelter monitor reviewed in reveals that the patient is in a normal sinus rhythm at time of assessment. The patient denies any other cardiac symptoms such as chest pain, shortness of breath, palpitations, or dizziness. Initial BNP level of 116.42pg/mL. Significant past medical history includes arthritis, anemia, chronic back pain with neurostimulator implantation. Past Medical History Past medical history reviewed. No other significant than mentioned above. Past Surgical History Back surgery with neurostimulator implantation Bilateral knee replacement Bilateral cataract removal Hysterectomy Breast reduction x3 Cholecystectomy Family History: Patient reports no known family medical history. Family History Family history reviewed. Social History Denies the use of tobacco, alcohol or illicit drugs. Allergies: Coded Allergies: NO KNOWN ALLERGIES (Unverified , 02/24/10) Home Meds Active Scripts Furosemide (Lasix) 20 Mg Tb, 1 TAB PO DAILY PRN, #30 TAB 1 Refill Prov:GWEN GONZALEZ MD 03/03/25 Reported Medications Morphine Sulfate (Morphine Sulfate) 15 Mg Tab, 1 TAB PO BID, #60 TAB 03/02/25 Venlafaxine Hydrochloride (Effexor Xr) 75 Mg Cap, 75 MG OR TID 03/02/11 Rizatriptan Benzoate (Maxalt) 10 Mg Tab, 10 MG OR PRN 03/02/11 Tramadol Hcl (Ultram) 50 Mg Tab, 100 MG OR TID 03/02/11 Hydrocodone-Acetaminophen (Mertzon 10/325MG) 1 Tab Tb, 1 TAB OR TID 03/02/11 [Robaxin] No Conflict Check 02/24/10 [Neurontin] No Conflict Check 02/24/10 Home Meds Home medications reviewed. Current Medications Current Medications Medications (Trade) Dose Ordered Sig/Jason Route PRN Reason Start Time Stop Time Status Last Admin Ceftriaxone Sodium 50 ml @ 100 mls/hr DAILY@09 IV 03/11/25 09:00 03/11/25 09:34 Sodium Chloride (Saline Lock Ns) 10 ml Q8HR IV 03/10/25 22:00 03/11/25 12:52 Acetaminophen/ Hydrocodone Bitart (Mertzon 5/325MG Tab) 1 tab Q4HP PRN PO MODERATE PAIN (4-6 PAIN SCALE) 03/10/25 20:15 03/11/25 02:22 Ondansetron HCl (Zofran) 4 mg Q4HP PRN IV NAUSEA / VOMITING 03/10/25 20:15 Docusate Sodium (Colace Capsule) 100 mg BIDPRN PRN PO FOR CONSTIPATION 03/10/25 20:15 Acetaminophen (Tylenol Tablet) 650 mg Q6HP PRN PO PAIN SCALE 1-3 OR TEMP>100.4 03/10/25 20:15 Nitroglycerin (Ntrostat Sublingual) 0.4 mg Q5MINP PRN SL FOR CHEST PAIN 03/10/25 21:00 Morphine Sulfate 2 mg Q30M PRN IV FOR CHEST PAIN 03/10/25 21:00 Furosemide (Lasix Injection) 40 mg DAILY IV 03/11/25 10:00 03/11/25 10:04 Aspirin 81 mg DAILY PO 03/11/25 10:00 03/11/25 12:50 Review of Systems Constitutional: No symptom reported Ears, Nose, & Throat: No symptom reported Eyes: No symptom reported Neurological: No symptoms reported Pulmonary/Respiratory: No symptoms reported Cardiovascular: Bilateral lower extremity edema Gastrointestinal: No symptom reported Genitourinary: No symptom reported Musculoskeletal: No symptom reported Skin: No symptom reported Psychiatric: No symptom reported Endocrine: No symptom reported Hematologic/Lymphatic: No symptom reported Vital Signs Vital Signs Date Time Temp Pulse Resp B/P (MAP) Pulse Ox O2 Delivery O2 Flow Rate FiO2 03/11/25 12:31 97.8 87 19 116/70 (85) 96 97.8 03/11/25 07:35 Room Air* 0 21 Physical Exam General Appearance: Cooperative. Obese Pulmonary/Respiratory: Clear, bilateral breaths sounds. Cardiovascular/Chest: Regular rate and rhythm. Peripheral Pulses: 2+ Radial (R). 2+ Radial (L). 2+ Pedal (R). 2+ Pedal (L) Abdominal Exam: Normal bowel sounds. Ankle Exam: 1+ pitting edema Lower extremities: 1+ pitting edema Neuro/Mental Status: A/OX4, coherent. Thoughts/Psych: Normal thought pattern. Appropriate mood and affect. Good judgment and insight. Appearance: No acute distress. Skin Exam: Normal inspection. Normal color. Warm and dry. Labs/Diagnostic Data Labs Test 03/11/25 05:16 03/10/25 18:38 03/10/25 17:50 Range/Units White Blood Count 4.0 L 4.4-10.8 10^3/uL Red Blood Count 2.53 L 4.0-5.20 10^6/uL Hemoglobin 7.2 L 12.2-16.2 g/dL Hematocrit 21.4 #L 36.0-46.0 % Mean Corpuscular Volume 84.5 80.0-100.0 fL Mean Corpuscular Hemoglobin 28.6 28.0-32.0 pg Mean Corpuscular Hemoglobin Concent 33.8 32.0-36.0 g/dL Red Cell Distribution Width 15.2 H 11.8-14.3 % Platelet Count 279 140-450 10^3/uL Mean Platelet Volume 7.5 6.9-10.8 fL Neutrophils (%) (Auto) 53.6 37.0-80.0 % Lymphocytes (%) (Auto) 31.2 10.0-50.0 % Monocytes (%) (Auto) 13.2 H 0.0-12.0 % Eosinophils (%) (Auto) 1.7 0.0-7.0 % Basophils (%) (Auto) 0.3 0.0-2.0 % Neutrophils # (Auto) 2.2 1.6-8.6 10 ^3/uL Lymphocytes # (Auto) 1.3 0.4-5.4 10 ^3/uL Monocytes # (Auto) 0.5 0-1.3 10 ^3/uL Eosinophils # (Auto) 0.1 0-0.8 10 ^3/uL Basophils # (Auto) 0 0-0.2 10 ^3/uL Nucleated Red Blood Cells 0.0 % Sodium Level 145 136-145 mmol/L Potassium Level 3.9 3.5-5.1 mmol/L Chloride Level 105 98-107 mmol/L Carbon Dioxide Level 31 20-31 mmol/L Anion Gap 9 5-15 Blood Urea Nitrogen 15 9-23 mg/dL Creatinine 1.28 H 0.550-1.02 mg/dL Glomerular Filtration Rate Calc 45 >90 mL/min BUN/Creatinine Ratio 11.7 10.0-20.0 Serum Glucose 106 74-106 mg/dL Calcium Level 8.2 L 8.7-10.4 mg/dL Magnesium Level 1.9 1.6-2.6 mg/dL Total Bilirubin 0.4 0.2-1.0 mg/dL Aspartate Amino Transferase (AST) 38 13-40 U/L Alanine Aminotransferase (ALT) 46 H 7-40 U/L Alkaline Phosphatase 99 46-116 U/L Total Protein 4.7 L 5.7-8.2 g/dL Albumin 2.5 L 3.2-4.8 g/dL Triglycerides Level 77 < 150 mg/dL Cholesterol Level 117 < 200 mg/dL LDL Cholesterol 58 < 100 mg/dL HDL Cholesterol 47 40-59 mg/dL Thyroid Stimulating Hormone (TSH) 1.10 0.55-4.78 uIU/mL Urine Color Light-yellow Yellow Urine Clarity Turbid H Clear Urine pH 8.0 5.0-9.0 Urine Specific [place] 1.012 1.001-1.035 Urine Protein Negative Negative Urine Ketones Negative Negative Urine Blood Negative Negative /uL Urine Nitrite Negative Negative Urine Bilirubin Negative Negative Urine Urobilinogen Normal Negative mg/dL Urine Leukocyte Esterase 3+ Negative /uL Urine RBC 22 0 - 4 /hpf Urine Microscopic WBC 6 H 0-5 /HPF Urine Squamous Epithelial Cells Mod <5 /hpf Urine Amorphous Crystals Few None Seen /hpf Urine Bacteria None seen None Seen /hpf Urine Glucose Normal Normal mg/dL B-Type Natriuretic Peptide 116.42 0-100 pg/mL Assessment Ruled out structural heart disease Rule out lower extremity DVT Acute anemia Acute kidney injury Obesity Plan/Recommendation We will continue with the following plan/recommendations (Dr. Jett): Case discussed with . A transthoracic echocardiogram from 03/02/2025 reveals an EF of 60%. [place] heart failure diagnostic criteria: Negative. The patient is euvolemic at time of assessment. The patient denies any cardiac symptoms including chest pain, shortness of breath, dyspnea, or orthopnea. Please consider other reasons for lower extremity edema such as DVT, kidney disease, lymphedema, thyroid dysfunction, etc. There is no further inpatient cardiac workup indicated at this time. Thank you for allowing us to care for this patient. Please call with any questions or concerns. Critical care time spent: 44 minutes This medical document was created using an electronic medical record system with voice recognition software and computerized dictation system. Although this document has been carefully reviewed, there might still be some phonetic and typographical errors. Occasional wrong-word or ``sound-alike substitutions may have occurred due to the inherent limitations of voice recognition software. These areas are purely typographical due to imperfections of the software programs and do not reflect any compromise in the patient's medical care. Please read the chart carefully and recognize, using context, where these substitutions have occurred. Plan discussed with: Patient NYHA Physical activity limitations: NA Date of Service: Mar 11, 2025 Billing Provider: BIRGIT SALDAÑA Cardiology Common Codes: [id number] INP/OBS CARE (High) Cardiology Consultation Codes: [id number] CONSULT <45MIN BIRGIT SALDAÑA Mar 11, 2025 14:53
[2025-03-11] MEDS: ENOXAPARIN SOD 80 MG/0.8ML SYRINGE SC SCH (21:46)
[2025-03-12] VITALS (9 sets, daily range): BP systolic 101–133; BP diastolic 46–86; PULSE 82–95; RESP 16–19; TEMP 98–100.2; O2SAT 95–98
--- NOTE | 2025-03-12 05:58 | DVH ---
CHEST RADIOGRAPH Indication: For pulmonary congestion Technique: Single frontal view of the chest was obtained Comparison: XY CHEST XRAY 1 VIEW on DOS: 03/01/25 IMPRESSION: Heart appears prominent size and stable. No focal airspace opacity, effusion, or pneumothorax. Mild pulmonary vascular congestion. Postsurgical changes in the upper abdomen.
--- NOTE | 2025-03-12 10:05 | DVHPN2 ---
Reviewed: Care Plan Changes from previous H/P or p: No Changes Eyes: No Pain, No Vision change, No Conjunctivae inflammation, No Eyelid inflammation, No Other, No Redness ENT: No Ear pain, No Ear discharge, No Nose pain, No Nose discharge, No Nose congestion, No Mouth pain, No Mouth swelling, No Throat pain, No Throat swelling, No Other Cardiovascular: No Chest Pain, No Palpitations, No Orthopnea, No Paroxysmal Noc. Dyspnea; Edema; No Lt Headedness, No Other Respiratory: No Cough, No Dry, No Shortness of breath, No SOB with excertion, No Wheezing, No Hemoptysis, No Pleuritic Pain, No Sputum, No Other Gastrointestinal: No Nausea, No Vomiting, No Abdominal Pain, No Diarrhea, No Constipation, No Melena, No Hematochezia, No Other Genitourinary: No Dysuria, No Frequency, No Incontinence, No Hematuria, No Retention, No Other Musculoskeletal: other (bilateral leg swelling and pain ); No neck pain, No shoulder pain, No arm pain, No back pain, No hand pain, No leg pain, No foot pain Skin: No Rash, No Lesions, No Jaundice, No Bruising, No Other Objective Vitals Vital Signs Date Time Temp Pulse Resp B/P (MAP) Pulse Ox O2 Delivery O2 Flow Rate FiO2 03/12/25 08:30 98.1 90 19 133/86 (102) 95 98.1 03/11/25 20:08 Room Air* 0 21 Intake/Output Intake and Output 03/12/25 07:00 Intake Total 1570 ml Output Total 4700 ml Balance -3130 ml Intake Oral 1520 ml IV Total 50 ml Output Urine Total 4700 ml # Bowel Movements 3 Medications Current Medications Medications Dose Ordered Sig/Jason Route Start Time Stop Time Status Last Admin Dose Admin Ceftriaxone Sodium 50 ml @ 100 mls/hr DAILY@09 IV 03/11/25 09:00 03/11/25 09:34 100 MLS/HR Sodium Chloride 10 ml Q8HR IV 03/10/25 22:00 03/12/25 06:42 10 ML Acetaminophen/ Hydrocodone Bitart 1 tab Q4HP PRN PO 03/10/25 20:15 03/12/25 04:54 1 TAB Ondansetron HCl 4 mg Q4HP PRN IV 03/10/25 20:15 Docusate Sodium 100 mg BIDPRN PRN PO 03/10/25 20:15 Acetaminophen 650 mg Q6HP PRN PO 03/10/25 20:15 Nitroglycerin 0.4 mg Q5MINP PRN SL 03/10/25 21:00 Morphine Sulfate 2 mg Q30M PRN IV 03/10/25 21:00 Furosemide 40 mg DAILY IV 03/11/25 10:00 03/11/25 10:04 40 MG Aspirin 81 mg DAILY PO 03/11/25 10:00 03/11/25 12:50 81 MG Enoxaparin Sodium 70 mg Q12HR SC 03/11/25 22:00 03/11/25 21:46 70 MG Laboratory Results Laboratory Tests 03/11/25 05:16 Urinalysis Test 03/10/25 18:38 Urine Color Light-yellow (Yellow) Urine Clarity Turbid (Clear) H Urine pH 8.0 (5.0-9.0) Urine Specific [place] 1.012 (1.001-1.035) Urine Protein Negative (Negative) Urine Ketones Negative (Negative) Urine Blood Negative /uL (Negative) Urine Nitrite Negative (Negative) Urine Bilirubin Negative (Negative) Urine Urobilinogen Normal mg/dL (Negative) Urine Leukocyte Esterase 3+ /uL (Negative) Urine RBC 22 /hpf (0 - 4) Urine Microscopic WBC 6 /HPF (0-5) H Urine Squamous Epithelial Cells Mod /hpf (<5) Urine Amorphous Crystals Few /hpf (None Seen) Urine Bacteria None seen /hpf (None Seen) Urine Glucose Normal mg/dL (Normal) Labs and/or images reviewed: Labs reviewed by me, Image(s) reviewed by me Assessment/Plan Assessment/Plan Acute CHF exacerbation, diastolic dysfunction Lasix, consult for Cardiology Dr. Jett appreciated Bilateral pedal edema: Symptomatic anemia hemoglobin 7.2: Will transfuse 1 unit RBC DVT right lower extremity: Lovenox 1 milligram/kilos subQ b.i.d. Bilateral Knee effusion: Consult for Possible UTI: Rocephin Hepatic steatosis Hepatomegaly Transaminitis Cirrhosis Bernal possible Hypokalemia, repleted Hypochromic normocytic anemia Iron-deficiency anemia Chronic back pain Morbid obesity BMI 37.2 Time spent 68 minutes Advanced care planning time 20 minutes Patient is full code [id number] Whiteside at bedside Plan discussed with: Patient My Orders Orders - MARIO NORRIS MD Procedure Category Date Status Time Bilat Lower Dvt US 03/11/25 Resulted 12:51 * Cardiology Consult CONS 03/11/25 Transmitted 12:52 Enoxaparin Sodium PHA 03/11/25 In Process (Lovenox) 22:00 Enoxaparin Sodium PHA 03/12/25 Verified (Lovenox) 10:00 Date of Service: Mar 12, 2025 Billing Provider: MARIO NORRIS MD Common Visit Codes: [id number] INP/OBS CARE(HIGH) MARIO NORRIS MD Mar 12, 2025 10:05
[2025-03-12] MEDS: ENOXAPARIN SOD 100 MG/1 ML SYRINGE SC SCH (11:49)
--- NOTE | 2025-03-12 14:12 | DVHINCON2 ---
Date of service: Mar 12, 2025 Reason for Consultation BL knee swelling History of Present Illness 69 yo F admitted with BL knee swelling -- hx of BL TKA in 2001. Knees feel good overall but just pain in both lower extremities; hx of CHF with fluid overload. RLE DVT Past Medical History PAST MEDICAL HISTORY: Arthritis, CHF Surgical History: Cholecystectomy, , Hysterectomy Surgical History (Other): back and bilateral knee surgery Family History: Patient reports no known family medical history. Allergies: Coded Allergies: NO KNOWN ALLERGIES (Unverified , 02/24/10) Home Meds Active Scripts Furosemide (Lasix) 20 Mg Tb, 1 TAB PO DAILY PRN, #30 TAB 1 Refill Prov:GWEN GONZALEZ MD 03/03/25 Reported Medications Morphine Sulfate (Morphine Sulfate) 15 Mg Tab, 1 TAB PO BID, #60 TAB 03/02/25 Venlafaxine Hydrochloride (Effexor Xr) 75 Mg Cap, 75 MG OR TID 03/02/11 Rizatriptan Benzoate (Maxalt) 10 Mg Tab, 10 MG OR PRN 03/02/11 Tramadol Hcl (Ultram) 50 Mg Tab, 100 MG OR TID 03/02/11 Hydrocodone-Acetaminophen (Berwind 10/325MG) 1 Tab Tb, 1 TAB OR TID 03/02/11 [Robaxin] No Conflict Check 02/24/10 [Neurontin] No Conflict Check 02/24/10 Current Medications Current Medications Medications (Trade) Dose Ordered Sig/Jason Route PRN Reason Start Time Stop Time Status Last Admin Enoxaparin Sodium (Lovenox) 70 mg Q12HR SC 03/11/25 22:00 03/12/25 09:57 DC 03/11/25 21:46 Enoxaparin Sodium (Lovenox) 100 mg Q12HR SC 03/12/25 10:30 03/12/25 11:49 Review of Systems 10 point ROS is neg except per HPI Vital Signs Vital Signs Date Time Temp Pulse Resp B/P (MAP) Pulse Ox O2 Delivery O2 Flow Rate FiO2 03/12/25 12:34 99.0 84 19 121/75 (90) 97 99.0 03/11/25 20:08 Room Air* 0 21 Physical Exam NAD Aox3 Obese BL LE: inc healed knee ROM 0-95 pain with palpation diffusely around legs pain at calf right side SILT L3-S2 foot [facility] Labs/Diagnostic Data Labs Test 03/11/25 05:16 03/10/25 18:38 03/10/25 17:50 Range/Units White Blood Count 4.0 L 4.4-10.8 10^3/uL Red Blood Count 2.53 L 4.0-5.20 10^6/uL Hemoglobin 7.2 L 12.2-16.2 g/dL Hematocrit 21.4 #L 36.0-46.0 % Mean Corpuscular Volume 84.5 80.0-100.0 fL Mean Corpuscular Hemoglobin 28.6 28.0-32.0 pg Mean Corpuscular Hemoglobin Concent 33.8 32.0-36.0 g/dL Red Cell Distribution Width 15.2 H 11.8-14.3 % Platelet Count 279 140-450 10^3/uL Mean Platelet Volume 7.5 6.9-10.8 fL Neutrophils (%) (Auto) 53.6 37.0-80.0 % Lymphocytes (%) (Auto) 31.2 10.0-50.0 % Monocytes (%) (Auto) 13.2 H 0.0-12.0 % Eosinophils (%) (Auto) 1.7 0.0-7.0 % Basophils (%) (Auto) 0.3 0.0-2.0 % Neutrophils # (Auto) 2.2 1.6-8.6 10 ^3/uL Lymphocytes # (Auto) 1.3 0.4-5.4 10 ^3/uL Monocytes # (Auto) 0.5 0-1.3 10 ^3/uL Eosinophils # (Auto) 0.1 0-0.8 10 ^3/uL Basophils # (Auto) 0 0-0.2 10 ^3/uL Nucleated Red Blood Cells 0.0 % Sodium Level 145 136-145 mmol/L Potassium Level 3.9 3.5-5.1 mmol/L Chloride Level 105 98-107 mmol/L Carbon Dioxide Level 31 20-31 mmol/L Anion Gap 9 5-15 Blood Urea Nitrogen 15 9-23 mg/dL Creatinine 1.28 H 0.550-1.02 mg/dL Glomerular Filtration Rate Calc 45 >90 mL/min BUN/Creatinine Ratio 11.7 10.0-20.0 Serum Glucose 106 74-106 mg/dL Hemoglobin A1c < 3.8 <5.7 % A1C Calcium Level 8.2 L 8.7-10.4 mg/dL Magnesium Level 1.9 1.6-2.6 mg/dL Total Bilirubin 0.4 0.2-1.0 mg/dL Aspartate Amino Transferase (AST) 38 13-40 U/L Alanine Aminotransferase (ALT) 46 H 7-40 U/L Alkaline Phosphatase 99 46-116 U/L Total Protein 4.7 L 5.7-8.2 g/dL Albumin 2.5 L 3.2-4.8 g/dL Triglycerides Level 77 < 150 mg/dL Cholesterol Level 117 < 200 mg/dL LDL Cholesterol 58 < 100 mg/dL HDL Cholesterol 47 40-59 mg/dL Thyroid Stimulating Hormone (TSH) 1.10 0.55-4.78 uIU/mL Urine Color Light-yellow Yellow Urine Clarity Turbid H Clear Urine pH 8.0 5.0-9.0 Urine Specific [place] 1.012 1.001-1.035 Urine Protein Negative Negative Urine Ketones Negative Negative Urine Blood Negative Negative /uL Urine Nitrite Negative Negative Urine Bilirubin Negative Negative Urine Urobilinogen Normal Negative mg/dL Urine Leukocyte Esterase 3+ Negative /uL Urine RBC 22 0 - 4 /hpf Urine Microscopic WBC 6 H 0-5 /HPF Urine Squamous Epithelial Cells Mod <5 /hpf Urine Amorphous Crystals Few None Seen /hpf Urine Bacteria None seen None Seen /hpf Urine Glucose Normal Normal mg/dL B-Type Natriuretic Peptide 116.42 0-100 pg/mL Microbiology Date/Time Source Procedure Growth Status 03/10/25 18:38 Voided Urine Urine Culture - Preliminary Resulted Plan/Recommendation Bilateral knee effusion - hx of TKA/ RLE DVT 1. WBAT with walker 2. BL knee xrays ordered 3. at this point I will hold off on aspiration as clinically low probably of a septic joint 4. on therapeutic RLE DVT treatment 5. recall as needed Plan discussed with: Patient EDDI PADGETT MD Mar 12, 2025 14:12
--- NOTE | 2025-03-12 15:37 | DVH ---
CLINICAL INDICATION: hx of TKA TECHNIQUE: XY L KNEE 2V XRAY Comparison: None FINDINGS/IMPRESSION: : There is no evidence of acute fracture or dislocation. Soft tissues are unremarkable. Left knee arthroplasty.
--- NOTE | 2025-03-12 15:38 | DVH ---
CLINICAL INDICATION: hx of TKA TECHNIQUE: 2 radiographic views of the right knee were obtained. Comparison: None FINDINGS/IMPRESSION: Right total knee arthroplasty in satisfactory position. No fractures or dislocations.
[2025-03-12] MEDS: ENOXAPARIN SOD 80 MG/0.8ML SYRINGE SC ONE (18:04)
[2025-03-12] MEDS: FUROSEMIDE 40 MG/4 ML VIAL ONE (18:04)
[2025-03-12] MEDS: ACETAMINOPHEN 325 MG TAB PO PRN (23:29)
[2025-03-13] VITALS (10 sets, daily range): BP systolic 102–128; BP diastolic 58–89; PULSE 72–104; RESP 16–19; TEMP 97.7–100.4; O2SAT 95–98
[2025-03-13 06:25] LABS: Hematocrit 28.6 % (36.0-46.0); Hemoglobin 9.6 g/dL (12.2-16.2); Mean Corpuscular Hemoglobin 28.5 pg (28.0-32.0); Mean Corpuscular Volume 85.5 fL (80.0-100.0); Nucleated Red Blood Cells % 0.1 %
[2025-03-13 06:38] LABS: Alanine Aminotransferase 37 U/L (7-40); Alkaline Phosphatase 105 U/L (46-116); Anion Gap 9 (5-15); BUN/Creatinine Ratio 10.0 (10.0-20.0); Bilirubin, Total 0.5 mg/dL (0.2-1.0); Blood Urea Nitrogen 10 mg/dL (9-23); Carbon Dioxide 31 mmol/L (20-31); Chloride 103 mmol/L (98-107); Glucose 97 mg/dL (74-106); Potassium 3.6 mmol/L (3.5-5.1); Sodium 143 mmol/L (136-145)
[2025-03-13 06:41] LABS: Albumin 2.5 g/dL (3.2-4.8); Calcium 8.0 mg/dL (8.7-10.4); Total Protein 4.9 g/dL (5.7-8.2)
--- NOTE | 2025-03-13 10:55 | DVHPN2 ---
Reviewed: Care Plan Changes from previous H/P or p: No Changes Eyes: No Pain, No Vision change, No Conjunctivae inflammation, No Eyelid inflammation, No Other, No Redness ENT: No Ear pain, No Ear discharge, No Nose pain, No Nose discharge, No Nose congestion, No Mouth pain, No Mouth swelling, No Throat pain, No Throat swelling, No Other Cardiovascular: No Chest Pain, No Palpitations, No Orthopnea, No Paroxysmal Noc. Dyspnea; Edema; No Lt Headedness, No Other Respiratory: No Cough, No Dry, No Shortness of breath, No SOB with excertion, No Wheezing, No Hemoptysis, No Pleuritic Pain, No Sputum, No Other Gastrointestinal: No Nausea, No Vomiting, No Abdominal Pain, No Diarrhea, No Constipation, No Melena, No Hematochezia, No Other Genitourinary: No Dysuria, No Frequency, No Incontinence, No Hematuria, No Retention, No Other Musculoskeletal: other (bilateral leg swelling and pain ); No neck pain, No shoulder pain, No arm pain, No back pain, No hand pain, No leg pain, No foot pain Skin: No Rash, No Lesions, No Jaundice, No Bruising, No Other Objective Vitals Vital Signs Date Time Temp Pulse Resp B/P (MAP) Pulse Ox O2 Delivery O2 Flow Rate FiO2 03/13/25 08:33 98.9 78 19 127/89 (102) 98 98.9 03/12/25 20:00 Room Air* 0 21 Intake/Output Intake and Output 03/13/25 07:00 Intake Total 2790 ml Output Total 4550 ml Balance -1760 ml Intake Oral 1090 ml Blood Product 1400 ml Other 300 ml Output Urine Total 4550 ml Medications Current Medications Medications Dose Ordered Sig/Jason Route Start Time Stop Time Status Last Admin Dose Admin Ceftriaxone Sodium 50 ml @ 100 mls/hr DAILY@09 IV 03/11/25 09:00 03/12/25 11:49 100 MLS/HR Sodium Chloride 10 ml Q8HR IV 03/10/25 22:00 03/13/25 06:03 10 ML Acetaminophen/ Hydrocodone Bitart 1 tab Q4HP PRN PO 03/10/25 20:15 03/13/25 08:15 1 TAB Ondansetron HCl 4 mg Q4HP PRN IV 03/10/25 20:15 Docusate Sodium 100 mg BIDPRN PRN PO 03/10/25 20:15 Acetaminophen 650 mg Q6HP PRN PO 03/10/25 20:15 03/12/25 23:29 650 MG Nitroglycerin 0.4 mg Q5MINP PRN SL 03/10/25 21:00 Morphine Sulfate 2 mg Q30M PRN IV 03/10/25 21:00 Furosemide 40 mg DAILY IV 03/11/25 10:00 03/12/25 11:50 40 MG Aspirin 81 mg DAILY PO 03/11/25 10:00 03/12/25 11:49 81 MG Enoxaparin Sodium 100 mg Q12HR SC 03/12/25 10:30 03/12/25 21:49 100 MG Laboratory Results Laboratory Tests 03/13/25 05:54 Chemistry Test 03/13/25 05:54 Albumin 2.5 g/dL (3.2-4.8) L Calcium Level 8.0 mg/dL (8.7-10.4) L Total Protein 4.9 g/dL (5.7-8.2) L LFT Test 03/13/25 05:54 Alanine Aminotransferase (ALT) 37 U/L (7-40) Alkaline Phosphatase 105 U/L (46-116) Aspartate Amino Transferase (AST) 37 U/L (13-40) Total Bilirubin 0.5 mg/dL (0.2-1.0) Urinalysis Test 03/10/25 18:38 Urine Color Light-yellow (Yellow) Urine Clarity Turbid (Clear) H Urine pH 8.0 (5.0-9.0) Urine Specific [place] 1.012 (1.001-1.035) Urine Protein Negative (Negative) Urine Ketones Negative (Negative) Urine Blood Negative /uL (Negative) Urine Nitrite Negative (Negative) Urine Bilirubin Negative (Negative) Urine Urobilinogen Normal mg/dL (Negative) Urine Leukocyte Esterase 3+ /uL (Negative) Urine RBC 22 /hpf (0 - 4) Urine Microscopic WBC 6 /HPF (0-5) H Urine Squamous Epithelial Cells Mod /hpf (<5) Urine Amorphous Crystals Few /hpf (None Seen) Urine Bacteria None seen /hpf (None Seen) Urine Glucose Normal mg/dL (Normal) Microbiology Microbiology Date/Time Source Procedure Growth Status 03/10/25 18:38 Voided Urine Urine Culture - Preliminary Resulted Labs and/or images reviewed: Labs reviewed by me, Image(s) reviewed by me Assessment/Plan Assessment/Plan Acute CHF exacerbation, diastolic dysfunction Lasix, consult for Cardiology Dr. Jett appreciated Bilateral pedal edema: Symptomatic anemia hemoglobin 7.2: Will transfuse 1 unit RBC DVT right lower extremity: Lovenox 1 milligram/kilos subQ b.i.d. Bilateral Knee effusion: Consult for appreciated advised conservative management, no aspiration for now History of bilateral total knee arthroplasty many years ago Possible UTI: Rocephin Hepatic steatosis Hepatomegaly Transaminitis Cirrhosis Bernal possible Hypokalemia, repleted Hypochromic normocytic anemia Iron-deficiency anemia Chronic back pain Morbid obesity BMI 37.2 Time spent 58 minutes Advanced care planning time 20 minutes Patient is full code FAWAD Whiteside at bedside Physical therapy ordered Plan discussed with: Patient My Orders Orders - MARIO NORRIS MD Procedure Category Date Status Time Obtain Consent For: ORDERS 03/12/25 Transmitted 10:48 Vital Signs MARYLOU 03/12/25 In Process 10:48 Complete Blood Count LAB 03/14/25 Verified 10:48 Complete Blood Count LAB 03/15/25 Verified 04:00 Comprehensive LAB 03/15/25 Verified Metabolic Panel 10:48 Comprehensive LAB 03/14/25 Verified Metabolic Panel 10:48 Date of Service: Mar 13, 2025 Billing Provider: MARIO NORRIS MD Common Visit Codes: [id number] INP/OBS CARE(HIGH) MARIO NORRIS MD Mar 13, 2025 10:55
[2025-03-14] VITALS (8 sets, daily range): BP systolic 103–126; BP diastolic 59–76; PULSE 80–91; RESP 16–18; TEMP 98.2–99.2; O2SAT 96–98
[2025-03-14] MEDS: DOCUSATE SOD 100 MG CAP PO PRN (10:25)
--- NOTE | 2025-03-14 10:59 | ECG ---
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
--- NOTE | 2025-03-14 11:11 | DVHPN2 ---
Reviewed: Care Plan Changes from previous H/P or p: No Changes Eyes: No Pain, No Vision change, No Conjunctivae inflammation, No Eyelid inflammation, No Other, No Redness ENT: No Ear pain, No Ear discharge, No Nose pain, No Nose discharge, No Nose congestion, No Mouth pain, No Mouth swelling, No Throat pain, No Throat swelling, No Other Cardiovascular: No Chest Pain, No Palpitations, No Orthopnea, No Paroxysmal Noc. Dyspnea; Edema; No Lt Headedness, No Other Respiratory: No Cough, No Dry, No Shortness of breath, No SOB with excertion, No Wheezing, No Hemoptysis, No Pleuritic Pain, No Sputum, No Other Gastrointestinal: No Nausea, No Vomiting, No Abdominal Pain, No Diarrhea, No Constipation, No Melena, No Hematochezia, No Other Genitourinary: No Dysuria, No Frequency, No Incontinence, No Hematuria, No Retention, No Other Musculoskeletal: other (bilateral leg swelling and pain ); No neck pain, No shoulder pain, No arm pain, No back pain, No hand pain, No leg pain, No foot pain Skin: No Rash, No Lesions, No Jaundice, No Bruising, No Other Objective Vitals Vital Signs Date Time Temp Pulse Resp B/P (MAP) Pulse Ox O2 Delivery O2 Flow Rate FiO2 03/14/25 10:25 109/68 03/14/25 09:00 99.0 82 16 98 99.0 03/14/25 08:00 Room Air* 0 21 Intake/Output Intake and Output 03/14/25 07:00 Intake Total 1200 ml Output Total 2400 ml Balance -1200 ml Intake Oral 1200 ml Output Urine Total 2400 ml # Bowel Movements 2 Medications Current Medications Medications Dose Ordered Sig/Jason Route Start Time Stop Time Status Last Admin Dose Admin Ceftriaxone Sodium 50 ml @ 100 mls/hr DAILY@09 IV 03/11/25 09:00 03/14/25 10:24 100 MLS/HR Sodium Chloride 10 ml Q8HR IV 03/10/25 22:00 03/13/25 21:15 10 ML Acetaminophen/ Hydrocodone Bitart 1 tab Q4HP PRN PO 03/10/25 20:15 03/14/25 10:25 1 TAB Ondansetron HCl 4 mg Q4HP PRN IV 03/10/25 20:15 Docusate Sodium 100 mg BIDPRN PRN PO 03/10/25 20:15 03/14/25 10:25 100 MG Acetaminophen 650 mg Q6HP PRN PO 03/10/25 20:15 03/12/25 23:29 650 MG Nitroglycerin 0.4 mg Q5MINP PRN SL 03/10/25 21:00 Morphine Sulfate 2 mg Q30M PRN IV 03/10/25 21:00 Furosemide 40 mg DAILY IV 03/11/25 10:00 03/14/25 10:25 40 MG Aspirin 81 mg DAILY PO 03/11/25 10:00 03/14/25 10:25 81 MG Enoxaparin Sodium 100 mg Q12HR SC 03/12/25 10:30 03/14/25 10:26 100 MG Laboratory Results Laboratory Tests 03/13/25 05:54 Urinalysis Test 03/10/25 18:38 Urine Color Light-yellow (Yellow) Urine Clarity Turbid (Clear) H Urine pH 8.0 (5.0-9.0) Urine Specific [place] 1.012 (1.001-1.035) Urine Protein Negative (Negative) Urine Ketones Negative (Negative) Urine Blood Negative /uL (Negative) Urine Nitrite Negative (Negative) Urine Bilirubin Negative (Negative) Urine Urobilinogen Normal mg/dL (Negative) Urine Leukocyte Esterase 3+ /uL (Negative) Urine RBC 22 /hpf (0 - 4) Urine Microscopic WBC 6 /HPF (0-5) H Urine Squamous Epithelial Cells Mod /hpf (<5) Urine Amorphous Crystals Few /hpf (None Seen) Urine Bacteria None seen /hpf (None Seen) Urine Glucose Normal mg/dL (Normal) Microbiology Microbiology Date/Time Source Procedure Growth Status 03/10/25 18:38 Voided Urine Urine Culture - Final Enterococcus faecium - VRE Presumptive Genie albicans Complete Labs and/or images reviewed: Labs reviewed by me, Image(s) reviewed by me Assessment/Plan Assessment/Plan Sepsis secondary to urinary tract infection with VRE Enterococcus LETI arreaga Rocephin start Zyvox 600 mg IV b.i.d. for three weeks Genie in the urine: Diflucan 200 mg IV daily for two weeks Structural heart disease ruled out patient does not have congestive heart failure cardiology consult by Dr. Jett appreciated Bilateral pedal edema: Symptomatic anemia hemoglobin 7.2: Improved to 9.6 after 1 unit RBC transfusion DVT right lower extremity: Lovenox 1 milligram/kilos subQ b.i.d. converted to Eliquis 10 mg p.o. b.i.d. seven days and then 5 mg p.o. b.i.d. for three months Bilateral Knee effusion: Consult for Dr.Nayyar bahena advised conservative management, no aspiration for now, x-ray both knees negative for any fracture or dislocation History of bilateral total knee arthroplasty many years ago Hepatic steatosis Hepatomegaly Transaminitis Cirrhosis possible NINA Hypokalemia, repleted Iron-deficiency anemia Chronic back pain Morbid obesity BMI 37.2 Time spent 58 minutes Advanced care planning time 20 minutes Patient is full code RN Stevo at bedside Physical therapy ordered Plan discussed with: Patient My Orders Orders - MARIO NORRIS MD Procedure Category Date Status Time Pt Request For Service PT 03/13/25 Logged 10:55 Linzeolid 600 Mg Ivpb PHA 03/14/25 Verified 22:00 Fluconazole Ivpb PHA 03/15/25 Verified Diflucan 10:00 Fluconazole Ivpb PHA 03/14/25 Verified Diflucan 10:45 Date of Service: Mar 14, 2025 Billing Provider: MARIO NORRIS MD Common Visit Codes: [id number] INP/OBS CARE(HIGH) MARIO NORRIS MD Mar 14, 2025 11:11
--- NOTE | 2025-03-14 11:16 | DVHDS2 ---
Discharge Summary Date of Admission Mar 10, 2025 at 20:46 Date of Discharge: Mar 14, 2025 Admitting Diagnosis Bilateral lower extremity swelling and weakness Wounds: None Labs/Diagnostic Data: Laboratory Results Test 03/13/25 05:54 03/11/25 05:16 03/10/25 18:38 03/10/25 17:50 White Blood Count 3.8 10^3/uL (4.4-10.8) Red Blood Count 3.35 10^6/uL (4.0-5.20) Hemoglobin 9.6 g/dL (12.2-16.2) Hematocrit 28.6 % (36.0-46.0) Mean Corpuscular Volume 85.5 fL (80.0-100.0) Mean Corpuscular Hemoglobin 28.5 pg (28.0-32.0) Mean Corpuscular Hemoglobin Concent 33.4 g/dL (32.0-36.0) Red Cell Distribution Width 14.9 % (11.8-14.3) Platelet Count 285 10^3/uL (140-450) Mean Platelet Volume 7.4 fL (6.9-10.8) Neutrophils (%) (Auto) 44.5 % (37.0-80.0) Lymphocytes (%) (Auto) 37.6 % (10.0-50.0) Monocytes (%) (Auto) 14.8 % (0.0-12.0) Eosinophils (%) (Auto) 2.7 % (0.0-7.0) Basophils (%) (Auto) 0.4 % (0.0-2.0) Neutrophils # (Auto) 1.7 10 ^3/uL (1.6-8.6) Lymphocytes # (Auto) 1.4 10 ^3/uL (0.4-5.4) Monocytes # (Auto) 0.6 10 ^3/uL (0-1.3) Eosinophils # (Auto) 0.1 10 ^3/uL (0-0.8) Basophils # (Auto) 0 10 ^3/uL (0-0.2) Nucleated Red Blood Cells 0.1 % Sodium Level 143 mmol/L (136-145) Potassium Level 3.6 mmol/L (3.5-5.1) Chloride Level 103 mmol/L (98-107) Carbon Dioxide Level 31 mmol/L (20-31) Anion Gap 9 (5-15) Blood Urea Nitrogen 10 mg/dL (9-23) Creatinine 1.00 mg/dL (0.550-1.02) Glomerular Filtration Rate Calc 61 mL/min (>90) BUN/Creatinine Ratio 10.0 (10.0-20.0) Serum Glucose 97 mg/dL (74-106) Calcium Level 8.0 mg/dL (8.7-10.4) Total Bilirubin 0.5 mg/dL (0.2-1.0) Aspartate Amino Transferase (AST) 37 U/L (13-40) Alanine Aminotransferase (ALT) 37 U/L (7-40) Alkaline Phosphatase 105 U/L (46-116) Total Protein 4.9 g/dL (5.7-8.2) Albumin 2.5 g/dL (3.2-4.8) Hemoglobin A1c < 3.8 % A1C (<5.7) Magnesium Level 1.9 mg/dL (1.6-2.6) Triglycerides Level 77 mg/dL (< 150) Cholesterol Level 117 mg/dL (< 200) LDL Cholesterol 58 mg/dL (< 100) HDL Cholesterol 47 mg/dL (40-59) Thyroid Stimulating Hormone (TSH) 1.10 uIU/mL (0.55-4.78) Urine Color Light-yellow (Yellow) Urine Clarity Turbid (Clear) Urine pH 8.0 (5.0-9.0) Urine Specific [place] 1.012 (1.001-1.035) Urine Protein Negative (Negative) Urine Ketones Negative (Negative) Urine Blood Negative /uL (Negative) Urine Nitrite Negative (Negative) Urine Bilirubin Negative (Negative) Urine Urobilinogen Normal mg/dL (Negative) Urine Leukocyte Esterase 3+ /uL (Negative) Urine RBC 22 /hpf (0 - 4) Urine Microscopic WBC 6 /HPF (0-5) Urine Squamous Epithelial Cells Mod /hpf (<5) Urine Amorphous Crystals Few /hpf (None Seen) Urine Bacteria None seen /hpf (None Seen) Urine Glucose Normal mg/dL (Normal) B-Type Natriuretic Peptide 116.42 pg/mL (0-100) Other Laboratory Tests 03/13/25 05:54 Brief Hx & Hospital Course: 69 yr old female with a history of bilateral total knee arthroplasty Tabatha amanda came in complaining of generalized weakness and swelling of the legs. Congestive heart failure was ruled out echocardiogram 65 percent ejection fraction. Venous ultrasound showed DVT bilateral lower extremities placed on Lovenox and converted to Eliquis patient complained of pain of the bilateral knees. Moderate knee effusion bilaterally x-ray negative for any fracture dislocation left knee and right knee. Orthopedic Dr Mar advised conservative management Urine showed VRE Enterococcus fecum. Rocephin was stopped and started on Zyvox 600 mg IV q.12h for three weeks also had a yeast in the urine started on Diflucan 200 mg IV daily for two weeks. Patient received physical therapy who advised halfway facility for rehab. Has a history of cirrhosis possible NINA with a hepatomegaly hepatic steatosis and chronic iron-deficiency anemia hemoglobin 7.2 improved to 9.6 after 1 unit RBC transfusion Patient's discharged to halfway facility for IV antibiotics for UTI and physical therapy. The patient is agreeable. FAWAD romeo at bedside Consults/Reason for consult Cardiology Orthopedic Operations or Procedures Echocardiogram Bilateral knee x-rays Venous ultrasound Condition at Discharge: Fair Final Diagnosis/Problems List Sepsis secondary to urinary tract infection with VRE Enterococcus fecum, DC Rocephin start Zyvox 600 mg IV b.i.d. for three weeks Genie in the urine: Diflucan 200 mg IV daily for two weeks Structural heart disease ruled out patient does not have congestive heart failure cardiology consult by Dr. Jett appreciated Bilateral pedal edema: Symptomatic anemia hemoglobin 7.2: Improved to 9.6 after 1 unit RBC transfusion DVT right lower extremity: Lovenox 1 milligram/kilos subQ b.i.d. converted to Eliquis 10 mg p.o. b.i.d. seven days and then 5 mg p.o. b.i.d. for three months Bilateral Knee effusion: Consult for appreciated advised conservative management, no aspiration for now, x-ray both knees negative for any fracture or dislocation History of bilateral total knee arthroplasty many years ago Hepatic steatosis Hepatomegaly Transaminitis Cirrhosis possible NINA Hypokalemia, repleted Iron-deficiency anemia Chronic back pain Morbid obesity BMI 37.2 Discharge Disposition: Halfway Facility Discharge Instruct/Medications Diet: Cardiac 2g Na,low cholest Activity: Light activity Follow Up/Referral: Follow up with the long-term Medications: Zyvox 600 mg IV q.12h for three weeks for E faecum VRE UTI Diflucan 200 mg IV daily for two weeks for Genie in the urine Scheduled Hydrocodone-Acetaminophen ([place] 10/325MG), 1 TAB OR TID, (Reported) Morphine Sulfate (Morphine Sulfate), 1 TAB PO BID, (Reported) Rizatriptan Benzoate (Maxalt), 10 MG OR PRN, (Reported) Tramadol Hcl (Ultram), 100 MG OR TID, (Reported) Venlafaxine Hydrochloride (Effexor Xr), 75 MG OR TID, (Reported) Scheduled PRN Furosemide (Lasix), 1 TAB PO DAILY PRN Miscellaneous Medications [Neurontin], (Reported) [Robaxin], (Reported) 39 (Time taken for discharge summary 39 minutes) Discharge Statement: "Patient was advised to return to the ER or call 911 if any headaches, dizziness, shortness of breath, chest pain, abdominal pain, bleeding, fevers, or worsening of medical condition. Patient was counseled about treatment plan, medications, possible side effects, patientverbalized understanding. All questions were answered to the best of my ability. This discharge took greater then 30 minutes in planning, reviewing documentation, counseling the patient, and discussing with other team members." ASSESSMENT ASSESSMENT Hospital Course Improved Assessment Sepsis secondary to urinary tract infection with VRE Enterococcus LETI arreaga Rocephin start Zyvox 600 mg IV b.i.d. for three weeks Genie in the urine: Diflucan 200 mg IV daily for two weeks Structural heart disease ruled out patient does not have congestive heart failure cardiology consult by Dr. Jett appreciated Bilateral pedal edema: Symptomatic anemia hemoglobin 7.2: Improved to 9.6 after 1 unit RBC transfusion DVT right lower extremity: Lovenox 1 milligram/kilos subQ b.i.d. converted to Eliquis 10 mg p.o. b.i.d. seven days and then 5 mg p.o. b.i.d. for three months Bilateral Knee effusion: Consult for appreciated advised conservative management, no aspiration for now, x-ray both knees negative for any fracture or dislocation History of bilateral total knee arthroplasty many years ago Hepatic steatosis Hepatomegaly Transaminitis Cirrhosis possible NINA Hypokalemia, repleted Iron-deficiency anemia Chronic back pain Morbid obesity BMI 37.2 Date of Service: Mar 14, 2025 Billing Provider: MARIO NORRIS MD Common Visit Codes: [id number] DISCH DAY >30min MARIO NORRIS MD Mar 14, 2025 11:16
[2025-03-14] MEDS: LINEZOLID 600MG/300ML 300 ML IV SCH (12:00)
[2025-03-14] MEDS: FLUCONAZOLE 200MG/100ML 100 ML IV ONE (12:24)
[2025-03-14 12:42] LABS: Hematocrit 29.6 % (36.0-46.0); Hemoglobin 10.0 g/dL (12.2-16.2); Mean Corpuscular Hemoglobin 28.8 pg (28.0-32.0); Mean Corpuscular Volume 85.5 fL (80.0-100.0); Nucleated Red Blood Cells % 0.1 %
[2025-03-14 13:00] LABS: Alkaline Phosphatase 114 U/L (46-116); Anion Gap 9 (5-15); Carbon Dioxide 30 mmol/L (20-31); Chloride 103 mmol/L (98-107); Glucose 99 mg/dL (74-106); Potassium 3.6 mmol/L (3.5-5.1); Sodium 142 mmol/L (136-145)
[2025-03-14 13:01] LABS: BUN/Creatinine Ratio 9.6 (10.0-20.0); Bilirubin, Total 0.5 mg/dL (0.2-1.0)
[2025-03-14 13:05] LABS: Alanine Aminotransferase 40 U/L (7-40); Albumin 2.7 g/dL (3.2-4.8); Blood Urea Nitrogen 8 mg/dL (9-23); Calcium 8.4 mg/dL (8.7-10.4); Total Protein 5.4 g/dL (5.7-8.2)
[2025-03-14] MEDS ORDERED: APIXABAN 5 MG TAB PO SCH (22:00)
[2025-03-15] MEDS ORDERED: FLUCONAZOLE 200MG/100ML 100 ML IV SCH (09:00)
== END 2025-03-14 21:55 | DRG 872 ==
LOC: EDBD 16:51 → ER 16:51 → OVERFLOW 20:46 → TELE-EAST 23:46
PROVIDERS: ADMIT Family Medicine; ATTEND Family Medicine
PROC: 30233N1 Transfusion of Nonautologous Red Blood Cells into Peripheral Vein, Percutaneous Approach (ICD-10-PCS; principal; 2025-03-12)
PROC: 05HC33Z Insertion of Infusion Device into Left Basilic Vein, Percutaneous Approach (ICD-10-PCS; 2025-03-14)
PROC: B54NZZA Ultrasonography of Left Upper Extremity Veins, Guidance (ICD-10-PCS; 2025-03-14)
DX: A41.81 Sepsis due to Enterococcus (principal); I82.431 Acute embolism and thrombosis of right popliteal vein; K74.60 Unspecified cirrhosis of liver; N17.9 Acute kidney failure, unspecified; N30.00 Acute cystitis without hematuria; Z79.01 Long term (current) use of anticoagulants; E66.01 Morbid (severe) obesity due to excess calories; D50.9 Iron deficiency anemia, unspecified; Z16.21 Resistance to vancomycin; R16.0 Hepatomegaly, not elsewhere classified; Z96.653 Presence of artificial knee joint, bilateral; R74.01 Elevation of levels of liver transaminase levels; K75.81 Nonalcoholic steatohepatitis (NASH); M25.461 Effusion, right knee; M25.462 Effusion, left knee; E87.6 Hypokalemia; G89.29 Other chronic pain; M54.9 Dorsalgia, unspecified; Z68.37 Body mass index [BMI] 37.0-37.9, adult; Z90.710 Acquired absence of both cervix and uterus; Z90.49 Acquired absence of other specified parts of digestive tract
CPT/HCPCS: 36415; 36430; 71045; 73560; 80048; 80053; 80061; 81001; 82962; 83036; 83735; 83880; 84443; 85025; 86850; 86900; 86901; 86920; 87086; 87088; 87186; 93005; 93970; 96365; 96375; 97163; G0378; J1450